=== PATIENT | male | born 1945 | race Caucasian/White ===

== ENCOUNTER 2017-11-28 04:34 | Emergency (ER) | payer MEDICARE, OTHER, SELFPAY ==
[2017-11-28 04:35] VITALS: BP 189/82; PULSE 61; RESP 24; TEMP 36.2; O2SAT 100; BMI 27.8
[2017-11-28 04:37] VITALS: BP 210/77; PULSE 57; RESP 24; O2SAT 100
--- NOTE | 2017-11-28 04:47 | ED.VISSUMM ---
- ER Visit Summary Date of Service: 11/28/17 Chief Complaint: Right upper quadrant abdominal pain History of Present Illness: The patient is a 72 M sudden right upper quadrant abdominal pain awakening him at 4 AM this morning. Sharp sensations 8 out of 10. No nausea or vomiting. No diarrhea. No fever, chills, sweats. Patient states a week ago had a CT scan of the abdomen and pelvis as an outpatient for left lower flank pain to rule out diverticulitis. He states he had a lot of gallstones that was reported to him. States he ate buttered popcorn at 10 PM last evening. No previous similar symptoms. History of appendectomy in 1972. Past medical history: Coronary disease, GERD, diabetes, hypertension, hypercholesterolemia Physical Examination: General: Alert and oriented ?3, moderate distress HEENT: Normocephalic, atraumatic. Moist mucosa membranes Neck: supple, nontender. Cardiovascular: Regular rate and rhythm, no murmurs Respiratory: Normal breath sounds, symmetric, no distress Abdomen: Soft, normal bowel sounds, nondistended. Positive Iwlson's sign. Extremities: Nontender, no edema, pulses intact ?4 Neuro: no focal neurological deficits. Test Results: WBC 5.3. Hemoglobin 13.6. Creatinine 0.99. Lipase 222. Alk phos 136. Right upper quadrant ultrasound pending. Emergency Department Course and Treatment: Patient positive Wilson sign on examination. Labs workup, normal labs except for slight elevated ALP of 136. Treated morphine Zofran and fluids. Additional fentanyl was given. CT scan report was obtained noted reported stone filled gallbladder. Right upper quadrant ultrasound ordered and is pending at this time. On reevaluation at 0755, symptoms much more improved. 0826: Reported ultrasound notes gallstones with sludge. No free fluid. Normal gallbladder wall. Normal common bile duct. Patient will follow-up with surgeon as outpatient. Return if any worsening symptoms. Treatment Plan: [] Disposition: Discharge Impression: 1. Cholelithiasis 2. Right upper quadrant abdominal pain This note was generated with [employer] dictation software. It may contain incorrect words, spelling, and punctuation that were not noted in review of the chart prior to signing ED Disposition - Plan for ED Patient: Disposition: Home or Assisted Living Chief Complaint: Abd Pain Diagnosis: Cholelithiasis, Right upper quadrant abdominal pain Instructions: Discharge Instructions for Gallstones Prescriptions: Oxycodone HCl/Acetaminophen [Percocet 5/325] 1 tablet PO Q6H PRN PRN 3 Days #12 tablet PRN Reason: Pain Ondansetron [Zofran Odt] 8 mg PO Q8H PRN PRN #10 tab PRN Reason: Nausea Referrals: Dandre Arcos MD [Primary Care Provider] - Jim Brown MD [STAFF PHYSICIAN] - 3-5 Days
[2017-11-28] MEDS: Morphine 4 MG/ML Syringe IV (04:53)
[2017-11-28] MEDS: 0.9% Normal Saline 1,000 ML 125 ML IV (04:53)
[2017-11-28] MEDS: Ondansetron 4 MG/2 ML Vial IV (04:53)
[2017-11-28 05:15] LABS: Absolute Lymphocyte Count 1.48 X10^3/ul (0.83-4.51); Basophil# 0.04 X10^3/uL; Basophil% 0.8 % (0-1); Eosinophil# 0.32 X10^3/uL; Hematocrit 39.7 % (40-54); Hemoglobin 13.6 g/dl (13.0-16.5); Lymphocyte # 1.48 X10^3/ul (4.0); Lymphocyte % 27.8 % (19-41); Mean Corp Hgb Conc 34.3 g/gl (32-36); Mean Corpuscular Hgb 29.4 pg (27.0-32.0); Mean Corpuscular Volume 85.7 fL (80-94); Mean Platelet Vol. 10.8 fl (6.2-12.0); Monocyte# 0.53 X10^3/uL; Monocyte% 9.9 % (0-10); Neutrophil # 2.95 X10^3/uL (2.7-7.7); Neutrophil % 55.3 % (47-70); Platelet Count 219 K/mm3 (150-450); RBC Distribution Width CV 12.7 % (11.6-14.6); RBC Distribution Width SD 38.7 fl (35.1-43.9); Red Blood Count 4.63 M/mm3 (4.6-6.2); White Blood Count 5.3 K/mm3 (4.4-11.0)
[2017-11-28 05:24] LABS: POSITIVE COUNT NO; POSITIVE DIFFERENTIAL NO; POSITIVE MORPHOLOGY NO
[2017-11-28 05:29] LABS: AST(SGOT) 19 U/L (15-37); Alanine Aminotransfer ALT/SGPT 31 U/L (16-61); Albumin, Serum 4.5 g/dL (3.2-5.0); Alkaline Phosphatase 136 U/L (45-117); Anion Gap 8 (5-15); BUN 20 mg/dL (7-18); BUN/Creat Ratio 20.3 RATIO (10-20); Chloride 106 mmol/L (98-107); Creatinine, Serum 0.99 mg/dL (0.70-1.30); EST Glomerular Filtration Rate 79 mL/min (>60); Est Glom Filt Rate - Afr Amer 96 mL/min (>60); Estimated Creatinine Clearance 77.34 ml/min; Globulin 3.4 g/dL (2.2-4.2); Glucose 158 mg/dL (74-106); Lipase 222 U/L (73-393); Potassium 3.7 mmol/L (3.5-5.1); Protein, Total 7.9 g/dL (6.4-8.2); Sodium Level 140 mmol/L (136-145)
--- NOTE | 2017-11-28 05:35 | US_ITS ---
STUDY: ABDOMINAL ULTRASOUND - RIGHT UPPER QUADRANT REASON FOR VISIT: Male, 72 years old. One-day history of right upper quadrant pain. The patient has a history of cholelithiasis. TECHNIQUE: Ultrasound evaluation of the right upper quadrant was performed with real-time and static allen-scale imaging. TECHNICAL QUALITY: Adequate. COMPARISON: None. FINDINGS: Liver: The liver measures 17.5 cm. There is normal echogenicity of the liver. The bile ducts are within normal limits. There is hepatic color flow. The direction of portal flow is hepatopetal. There is no demonstrated mass lesion. Gallbladder: Normal distended gallbladder. The gallbladder wall measures 2.8 mm. There is a positive sonographic Wilson's sign. There is no pericholecystic fluid. There are multiple echogenic structures within the gallbladder, consistent with multiple gallstones. A small amount of sludge is seen within the gallbladder lumen. Common Bile Duct (C.B.D.): The common bile duct measures 3.4 mm. Pancreas: There is nonvisualization of the pancreas due to overlying bowel gas. Right Kidney: Normal size of the right kidney. The right kidney measures 12.2 cm x 6.5 cm x 6.5 cm. Normal renal cortex. The right cortex measures 2.7 cm. 2 renal cysts are seen. The larger measures 1.7 cm x 1.5 cm x 1.1 cm. There is no right hydronephrosis. US/Gallbladder IMPRESSION: Multiple gallstones and sludge within the gallbladder lumen. Right renal cysts. Electronically Signed: Hermann De La Rosa MD at 8:26 EDT Tel [phone], Service support ,
[2017-11-28 05:38] LABS: International Normalized Ratio 1.1; Prothrombin Time (Protime)PT. 13.8 SECONDS (11.7-14.9)
[2017-11-28] MEDS: fentaNYL 100 MCG/2 ML Ampul 50 MCG IV (05:41)
[2017-11-28 06:02] LABS: Partial Thromboplast Time 32.9 Seconds (24.1-36.2)
[2017-11-28 06:03] VITALS: BP 140/47; PULSE 51; RESP 14; O2SAT 97
[2017-11-28 08:00] VITALS: BP 119/43; PULSE 51; RESP 16; O2SAT 96
== END 2017-11-28 08:47 | disposition home or self-care (01) ==
PROVIDERS: Emergency Provider Emergency Medicine; Family Provider Internal Medicine; PCP Internal Medicine
DX: K80.20 Calculus of gallbladder without cholecystitis without obstruction (principal); R10.11 Right upper quadrant pain; I25.10 Atherosclerotic heart disease of native coronary artery without angina pectoris; K21.9 Gastro-esophageal reflux disease without esophagitis; E11.9 Type 2 diabetes mellitus without complications; I10 Essential (primary) hypertension; E78.00 Pure hypercholesterolemia, unspecified
CPT/HCPCS: 76705; 80048; 80076; 83690; 85025; 85610; 85730; 86850; 86900; 96361; 96374; 96375; 99282; J7030; A4216; J2405

== ENCOUNTER 2017-11-29 19:45 | Observation (INO) | payer MEDICARE, OTHER, SELFPAY ==
[2017-11-29] VITALS (9 sets, daily range): BP systolic 129–146; BP diastolic 47–69; PULSE 46–72; RESP 14–18; TEMP 36.3–37.2; O2SAT 93–99; BMI 27.4
[2017-11-29 15:26] LABS: ALB/GLOB Ratio 1.2 RATIO (0.9-2.4); AST(SGOT) 17 U/L (15-37); Alanine Aminotransfer ALT/SGPT 27 U/L (16-61); Albumin, Serum 4.2 g/dL (3.2-5.0); Alkaline Phosphatase 113 U/L (45-117); Anion Gap 5 (5-15); BUN 18 mg/dL (7-18); BUN/Creat Ratio 16.5 RATIO (10-20); Calcium,Total 8.8 mg/dL (8.5-10.1); Chloride 102 mmol/L (98-107); Creatinine, Serum 1.09 mg/dL (0.70-1.30); EST Glomerular Filtration Rate 71 mL/min (>60); Est Glom Filt Rate - Afr Amer 86 mL/min (>60); Globulin 3.5 g/dL (2.2-4.2); Glucose 203 mg/dL (74-106); Potassium 3.8 mmol/L (3.5-5.1); Protein, Total 7.7 g/dL (6.4-8.2); Sodium Level 138 mmol/L (136-145)
--- NOTE | 2017-11-29 15:43 | EKG12_ITS ---
Test Reason : PREOP Blood Pressure : / mmHG Vent. Rate : 048 BPM Atrial Rate : 048 BPM P-R Int : 198 ms QRS Dur : 182 ms QT Int : 490 ms P-R-T Axes : 017 -46 -26 degrees QTc Int : 437 ms Marked sinus bradycardia Right bundle branch block Left anterior fascicular block Bifascicular block Septal infarct , age undetermined , cannot be excluded Abnormal ECG Confirmed by CABRERA RICKETTS, CHAZ ([id number]), continuity editor ELENA PIERRE ([id number]) on 12/07/2017 1:05:02 PM Referred By: Jim Brown Confirmed By:CHAZ REES MD
[2017-11-29 16:01] LABS: Bedside Glucose 175 mg/dL (70-110)
[2017-11-29 16:30] LABS: Hemoglobin A1c 6.6 % (4.2-6.3)
[2017-11-29] MEDS: Cefazolin 2 GM in 0.9% Normal Saline 100 ML IV (18:09)
--- NOTE | 2017-11-29 18:30 | RAD_ITS ---
STUDY: INTRAOPERATIVE CHOLANGIOGRAM. REASON FOR EXAM: Male, 72 years old. Laparoscopic cholecystectomy. FLUOROSCOPY TIME (if supplied): (31.1 seconds.) minutes/seconds TECHNIQUE: Intraoperative cholangiogram was performed by the surgeon. Imaging was submitted. COMPARISON: None. FINDINGS: The visualized intrahepatic ducts are unremarkable. The common bile duct is not dilated. There is free flow of contrast into the duodenum. RAD/Cholangiogram/ O R,Initial IMPRESSION: Unremarkable intraoperative cholangiogram. Electronically Signed: Hermann De La Rosa MD at 15:31 EDT Tel [phone], Service support ,
[2017-11-29] MEDS: Bupivacaine Mpf 0.5% 30 ML VIAL OPERA.SITE (19:33)
--- NOTE | 2017-11-29 19:38 | OP.PCM_ITS ---
Problem List (1) Acute cholecystitis Status: Acute Report of Operation Date of Procedure: 11/29/17 Pre-Operative Diagnosis: Acute cholecystitis cholelithiasis Post-Operative Diagnosis: Same Surgery/Procedure Performed:: Laparoscopic cholecystectomy with cholangiography Description of Surgical Findings:: Timeout and informed consent was obtained. 72-year-old gentleman was taken to the operating room. By history it became apparent that he has been ill for over 1 week. His abdomen sterilely prepped and draped. Ancef 2 g given intravenously preoperatively. 0.5% Marcaine was used as local anesthetic. Throughout the procedure total 30 cc was given. Skin sites were pre- anesthetized for it. A vertical incision was made at the superior aspect of the umbilicus. Sharp dissection carried down through the substance tissue. The fascia was incised the posterior sheath identified it was incised and the 12 mm trocar was inserted. The abdomen was insufflated with CO2 to a pressure of 10 mmHg pressure. The abdomen is inspected there were dense adhesions of omentum to the gallbladder which is markedly indurated and inflamed. Five- minute trochars in place of the epigastric mid abdomen right upper quadrant. Tedious blunt and sharp and electrocautery dissection was used to free the omentum. The gallbladder was so tense that had to be needle aspirated free. Then tedious dissection performed down toward the infundibular area and careful aqua dissection and blunt dissection was performed. Hem-o-irene clips were used for hemostasis. The cystic artery was identified it was secured proximally with a Hem-o-irene clip circumferential dissection was performed. Because of the amount of induration all of her cephalad I elected to do a dome down approach. The gallbladder peritoneum was incised with electrocautery and carefully and tediously recently it was taken as a dome down approach. Having achieved this I can then see the infundibular area of the gallbladder in a much clearer fashion was able to bluntly dissect free with the [place] retractor until all I had was infundibular cystic duct area. I placed a Hem-o-irene clip on that an incision and there were multiple stones that was able to milk back from the cystic duct infundibular stump. I aspirated those free. Great care was taken to leave no stones behind. I then inserted a cholangiogram catheter through a 14-gauge Angiocath and fluoroscopically controlled cholangiograms were obtained. This demonstrated that the ductal anatomy was nicely intact. The cystic duct was still rather long. There was good flow into the small bowel. There was no evidence of any intraluminal common bile duct filling defects. The cholangiogram catheter was removed and 2 large Hem-o-irene clips were placed on the cystic duct stump area. Gallbladder was transected immediately placed in retrieval bag. The right upper quadrant was then copiously irrigated and aspirated free of excess fluid. I placed a 15 round GUDELIA drain to the subhepatic space and I shorten that drain to length. It was secured skin with interrupted 3-0 nylon. The gallbladder was then exited the umbilicus no further fascial enlargement was required. Trochars were removed under visualization the abdomen was allowed to deflate CO2 the fascia at the umbilicus approximated with 2 interrupted figure 8 sutures of 0 Vicryl. Skin edges approximated up to 4 Monocryl subdermal stitches. Steri-Strips Telfa and OpSite dressings applied. Sponge instrument and needle counts were reported to the surgeon to be correct. The aspirate from the gallbladder was sent for Gram stain culture and sensitivity. He was taken to the recovery room in satisfactory condition without apparent complication. Specimens gallbladder and gallbladder fluid for culture. Drains #15 GUDELIA round right upper quadrant. Blood loss minimal. Jim Brown M.D., F.A.C.S. Type of Anesthesia:: General Anesthesiologist: Ray Coughlin
--- NOTE | 2017-11-29 19:51 | DCINST_ITS ---
Discharge Diet: Light diet - advance as tolerated - if you have questions about your diet instructions, please talk to you doctor. Discharge Activity: May Not Drive - for 1 week or while taking narcotic pain medicine. May shower in (days): 1 Lifting Restrictions: 10 pounds Call your doctor if your incision/area has: Continuous Slow Oozing, Sudden Increased Bleeding, Increased Pain/ Swelling, Increased Redness, Foul Smelling Discharge Call your doctor if you observe: Fever of 101 or Higher Suture Line Care: Avoid Pulling/Pushing, Avoid Pinching/Bending Additional Dressing/Incision Instructions:: Change or remove dressing in 4 days. Leave steri-strips in place for 1 week. Allergies/Adverse Reactions: Allergies No Known Allergies Allergy (Verified 11/29/17 13:46) Medications to take at Discharge Amlodipine [Norvasc] 10 mg PO DAILY 10/02/13 Metformin HCl [Glucophage] 1,000 mg PO BID 10/02/13 Metoprolol Tartrate [Lopressor (beta vern)] 100 mg PO BID 10/02/13 Paroxetine HCl [Paxil] 20 mg PO DAILY 10/02/13 Ramipril [Altace] 10 mg PO DAILY 10/02/13 Atorvastatin Calcium [Lipitor] 80 mg PO DINNER 11/21/13 Alendronate Sodium [Fosamax] 70 mg PO Q7D@0700 11/28/17 Calcium Carbonate [Calcium] 630 mg PO DAILY 11/28/17 Cholecalciferol (Vitamin D3) [Vitamin D3] 500 unit PO DAILY 11/28/17 Doxazosin Mesylate [Cardura] 2 mg PO DAILY 11/28/17 Freedom-3 Fatty Acids [Freedom-3] 550 mg PO BID 11/28/17 Ondansetron [Zofran Odt] 8 mg PO Q8H PRN PRN #10 tab 11/28/17 Oxycodone HCl/Acetaminophen [Percocet 5-325] 1 tab PO Q6H PRN PRN 3 Days #12 tab 11/28/17 Hydrocodone Bitart/Apap 5-325 [[place] 5/325] 1 tab PO Q6H PRN PRN 3 Days #10 tab 11/29/17 aspirin 81 mg tablet,delayed release 81 mg PO QDAY 11/29/17 Ciprofloxacin [Cipro] 250 mg PO BID #10 tab 11/30/17 The following prescriptions were given: Ciprofloxacin [Cipro] 250 mg PO BID #10 tab Primary Care Physician: Dandre Arcos MD [Primary Care Provider] - Please Follow Up With: Jim Brown MD - [phone] When: Call to make an appointment to be seen in about 10 days.
[2017-11-29 20:11] LABS: Bedside Glucose 163 mg/dL (70-110)
[2017-11-29] MEDS: Lactated Ringers 1,000 ML 50 ML IV (20:42)
[2017-11-29] MEDS: Cefazolin 1 GM/50 ML BAG IV (22:57)
[2017-11-29] MEDS: Morphine 2 MG/ML Syringe IV (22:57)
[2017-11-29 23:10] LABS: Bedside Glucose 180 mg/dL (70-110)
--- NOTE | 2017-11-29 23:20 | NURSING ---
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
[2017-11-29] MEDS: Metoprolol Tartrate 100 MG Tablet PO (23:34)
--- NOTE | 2017-11-30 | GALL_PTH ---
PATIENT: SUSAN CARLTON LOC: MS3 U#:[id number] AGE/SX: 72/M ROOM: MS310 RE11/29/[address]: Dr. Jim Brown MD : 1945 BED: 1 DIS: 11/30/2017 SPEC #: [id number] RECD: 11/30/17 12:21 STATUS: ANGEL LUIS ECHEVARRIA #: [id number] VESTA: 11/30/17 00:[address]: Jim Brown DEPT: SURGICAL PATHOLOGY RECD BY: Deshawn Grimaldo ENTERED: 11/30/17 12:21 SP TYPE: AKBAR AQUINO DR: Dr. Dandre Acros MD Tissues: Gallbladder, NOS Procedures: Surgery Specimen Level III HEADER OPERATION: Laparoscopic cholecystectomy with IOC PRE-OP DIAGNOSIS: Acute cholecystitis without biliary obstruction TISSUE SUBMITTED: Gallbladder MICROSCOPIC DIAGNOSIS Gallbladder, cholecystectomy: Acute and chronic cholecystitis and cholelithiasis. AM:sherrell 12/01/17 MICROSCOPIC DESCRIPTION Slides are reviewed. GROSS DESCRIPTION Received is one container labeled with the patient's name and designated gallbladder. The specimen consists of a gallbladder measuring 9 x 4 x 3.5 cm. The external surface is smooth and glistening. Focally, it is granular, hemorrhagic and contains cautery artifact. The lumen of the gallbladder contains yellow mucoid bile and multiple black calculi ranging in size from <0.1 to 1 cm in greatest dimension. The mucosa is bile-stained and without any mass lesions. The gallbladder wall averages 0.1 cm in thickness and is free of mass lesions. Seating Upholsterer sections of the gallbladder and the cystic duct are submitted in one cassette. / AM:sherrell 11/30/17 TC:2 CPT: 65629
[2017-11-30 01:00] VITALS: BP 153/75; PULSE 71; RESP 16; TEMP 37.4; O2SAT 94
[2017-11-30] MEDS: Morphine 4 MG/ML Syringe IV (01:07)
[2017-11-30 05:38] VITALS: BP 135/67; PULSE 57; RESP 18; TEMP 37.4; O2SAT 96
[2017-11-30] MEDS: Cefazolin 1 GM/50 ML BAG IV (05:41)
--- NOTE | 2017-11-30 05:41 | PCM.PN.SRG ---
Patient Problems: Active and Suspected Problems (Last Reviewed 11/29/17 @ 13:43 by Enma Lorenz) Acute cholecystitis (Acute) Subjective: Pt feeling better Hasn't voided since surgery - Physical Exam Abdomen: Soft, Hypoactive Bowel Sounds - GUDELIA drain with incomplete dressing and open dressing staining and leakage externally, Distended Vital Signs Temp Pulse Resp BP Pulse Ox 99.4 F H 57 L 18 135/67 H 96 11/30/17 05:38 11/30/17 05:38 11/30/17 05:38 11/30/17 05:38 11/30/17 05:38 Oxygen Flow Rate (L/min) 2 Oxygen Delivery Method Room Air Weight: 211 lb Body Mass Index (BMI) 27.4 Finger Stick Blood Glucose 163 Intake and Output for Last 24 Hours 11/28/17 11/29/17 11/30/17 23:59 23:59 23:59 Intake Total 2285 / 2285 301 / 301 Output Total 30 / 30 20 / 20 Balance 2255 / 2255 281 / 281 Laboratory Tests Past 24 Hrs 11/28/17 11/29/17 04:57 14:42 Sodium 138 Potassium 3.8 Chloride 102 Carbon Dioxide 31.0 Anion Gap 5 BUN 18 Creatinine 1.09 Est GFR (MDRD) Af Amer 86 Est GFR (MDRD) Non-Af 71 BUN/Creatinine Ratio 16.5 Glucose 203 H Hemoglobin A1c 6.6 H Calcium 8.8 Total Bilirubin 1.00 AST 17 ALT 27 Alkaline Phosphatase 113 Total Protein 7.7 Albumin 4.2 Globulin 3.5 Albumin/Globulin Ratio 1.2 POC Glucose 11/29/17 11/29/17 11/29/17 23:04 20:07 15:45 POC Glucose 180 H 163 H 175 H Medical Necessity - Tobacco Use Smoking Status: Former smoker Tobacco Use: Pipe Assessment/Plan Active and Suspected Problems (Last Reviewed 11/29/17 @ 13:43 by Enma Lorenz) Acute cholecystitis (Acute) Pt with h/o urinary retention and hasnt voided since OR. Needs U/S bladder and my need catheter to drainage GUDELIA dressing open to air and soiled placing at risk of infection and removal Will remove drain to avoid complication Need to check GB gm stain Hopeful discharge later today
--- NOTE | 2017-11-30 06:17 | NURSING ---
Patient up ambulating in hallways at this time
[2017-11-30 09:27] VITALS: PULSE 74
[2017-11-30] MEDS: Metoprolol Tartrate 100 MG Tablet PO (09:27)
[2017-11-30] MEDS: Aspirin E.C. 81 MG Tablet PO (09:27)
[2017-11-30] MEDS: amLODIPine 10 MG Tablet PO (09:27)
[2017-11-30] MEDS: Doxazosin 1 MG Tablet 2 MG PO (09:28)
[2017-11-30] MEDS: Ramipril 10 MG Capsule PO (09:28)
[2017-11-30] MEDS: oxyCODONE 5 MG Tablet PO (09:31)
[2017-11-30 09:46] VITALS: BP 135/72; PULSE 72; RESP 18; TEMP 37; O2SAT 98
[2017-11-30 12:46] LABS: Bedside Glucose 162 mg/dL (70-110)
[2017-11-30 15:59] VITALS: BP 122/47; PULSE 59; RESP 18; TEMP 37.2; O2SAT 97
[2017-11-30 16:37] VITALS: BP 128/74; PULSE 58; RESP 18; TEMP 36.9; O2SAT 97
== END 2017-11-30 16:40 | disposition home or self-care (01) ==
LOC: SDC 11-30 10:00
PROVIDERS: Anesthesiology; Admitting Provider Surgery; Family Provider Internal Medicine; PCP Internal Medicine; Visit Provider Surgery
PROC: (CPT 47610; principal; 2017-11-29 19:20)
DX: K80.12 Calculus of gallbladder with acute and chronic cholecystitis without obstruction (principal); E11.9 Type 2 diabetes mellitus without complications; Z87.891 Personal history of nicotine dependence; R33.9 Retention of urine, unspecified; Z79.899 Other long term (current) drug therapy; Z79.84 Long term (current) use of oral hypoglycemic drugs; I44.4 Left anterior fascicular block; I10 Essential (primary) hypertension; E78.00 Pure hypercholesterolemia, unspecified
CPT/HCPCS: 00790; 47563; 36415; 74300; 76000; 80053; 82962; 83036; 87070; 87075; 87077; 87186; 87205; 88304; 93005; 96365; 96366; 96375; 96376; 97802; 99218; J7120; G0378; G0379; J2405

== ENCOUNTER 2018-10-13 16:58 | Emergency (ER) | payer MEDICARE, OTHER, SELFPAY ==
[2018-10-13 16:58] VITALS: BP 216/88; PULSE 52; RESP 16; TEMP 36.3; O2SAT 97; BMI 28.2
--- NOTE | 2018-10-13 17:14 | EKG12_ITS ---
Test Reason : HTN Blood Pressure : / mmHG Vent. Rate : 052 BPM Atrial Rate : 052 BPM P-R Int : 188 ms QRS Dur : 168 ms QT Int : 494 ms P-R-T Axes : 027 -57 -23 degrees QTc Int : 459 ms Sinus bradycardia Right bundle branch block Left anterior fascicular block Bifascicular block Confirmed by GAIL RICKETTS, ALYSSA ([id number]), medical transcription editor PRIYANKA HORNE ([id number]) on 10/19/2018 1:58:15 PM Referred By: ARIS Confirmed By:ALYSSA REYNOLDS MD
--- NOTE | 2018-10-13 17:21 | ED.DCSUM_ITS ---
History of Present Illness Chief Complaint: Hypertension Detail of Chief Complaint: Mild head discomfort/lightheadedness Informant: Patient Onset: Days Context: Gradual Onset - Read narrative, - Timing: Continuous Quality: Elevated blood pressure that started several weeks ago Location: Not applicable Current Severity: Moderate Maximum Severity: Moderate Worsened by: Nothing Relieved by: Nothing Associated Symptoms: Mild head discomfort last evening and lightheadedness. Narrative: Patient is an elderly male with multiple medical problems. He states several months ago he decreased his metoprolol level from 100 mg to 50 mg. The Toprol was decreased because of dizziness/orthostatic symptoms. Several weeks ago he had blood pressure readings of 160 systolic. The last several days he has had readings 190s to greater than 200. He reported mild head discomfort/lightheadedness last evening. He denies visual, ocular auditory symptoms. No trouble speech or swallowing. Denies paresthesia, anesthesia motors. Trouble with balance. He denies chest pain, back pain or low back discomfort. Prior similar symptoms: No Recent Illness/Hospitalization: No - Past Medical History (1) CAD (coronary artery disease) Status: Chronic (2) DM (diabetes mellitus), type 2 Status: Chronic (3) Peripheral neuropathy Status: Chronic (4) S/P CABG x 2 Status: Chronic Comment: in 2002 (5) Trimalleolar fracture of right ankle Status: Chronic Past Medical History - Allergies and Home Meds Allergies/Adverse Reactions: Allergies No Known Allergies Allergy (Verified 10/13/18 17:02) Primary Care Physician: Dandre Arcos MD [Primary Care Provider] - Prior records reviewed: Yes Surgical History: appendectomy, tonsillectomy, - - Open reduction internal fixation left trimalleolar fracture complicated by diabetic foot ulcer. Lives: Spouse/ Significant Other Smoking Status: Former smoker Alcohol: None - Family History Maternal Family History: Family History (Last Reviewed 12/11/17 @ 12:51 by Enma Lorenz) Father Hypertension Sister Hypertension Family History: Reports: Cancer Paternal Family History: Family History (Last Reviewed 12/11/17 @ 12:51 by Enma Lorenz) Father Hypertension Sister Hypertension Family History: Reports: High Cholesterol, Heart Disease, Hypertension, - Review of Systems General: Denies: Chills, Fever, Malaise, Sweats Eyes: Denies: Visual changes - bilaterally, Blurred Vision - bilaterally, Diplopia ENT: Denies: Rhinorrhea, Sore throat Cardiovascular: Denies: Chest pain, Palpitations Respiratory: Denies: Dyspnea, Cough, Dyspnea on exertion Gastrointestinal: Denies: Abdominal pain, Nausea, Vomiting, Diarrhea, Melena, Hematochezia Genitourinary: Denies: Dysuria, Hematuria, Frequency Musculoskeletal: Denies: Back pain, Extremity Pain Skin: Denies: Rash, Wounds Neurological: Denies: Headache - Head discomfort which he describes as lightheadedness, Weakness, Numbness Endocrine: Denies: Polyuria, Polydipsia Allergy: Denies: Uticaria Physical Exam Vital Signs/Narrative: Vital Signs Temp Pulse Resp BP Pulse Ox 10/13/18 16:58 97.4 F L 52 L 16 216/88 H 97 General: Well nourished, Well developed, No Acute Distress Head: Normocephalic, Atraumatic Eyes: Perrl, EOMI, - - Cup-to-disc ratio is normal. There is no papilledema. 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 Negative for: Pale conjunctiva, Scleral icterus ENT: Moist mucous membranes, No rhinorrhea, TM's clear. Negative for: Sinus tenderness Neck: Supple, Nontender, No lymphadenopathy, No JVD Cardiovascular: Regular rate, Regular rhythm, No murmurs, Normal S1, Normal S2 Respiratory: No distress, CTA bilaterally, Chest nontender Abdomen: Soft, Nontender, Nondistended, Normal bowel sounds Back: Nontender, Normal Inspection Extremities: Nontender, No edema Skin: Normal color, No rash Neurological: Alert, Oriented x3, Cranial nerves II-XII grossly intact, Normal Strength, Normal Sensation, Normal DTR, Normal Gait, - Psychological: Normal affect, Normal Mood Diagnostic/Tx/Re-eval Laboratory Results 10/13/18 10/13/18 17:40 18:00 Sodium 140 Potassium 3.8 Chloride 109 H Carbon Dioxide 26.0 Anion Gap 5 BUN 19 H Creatinine 0.86 Estim Creat Clear Calc 87.75 Est GFR (MDRD) Af Amer 112 Est GFR (MDRD) Non-Af 93 BUN/Creatinine Ratio 22.1 H Glucose 145 H Calcium 8.7 Urine Color Yellow Urine Clarity Clear Urine pH 5.0 Ur Specific [place] 1.030 Urine Protein 30 H Urine Glucose (UA) 100 H Urine Ketones Negative Urine Occult Blood Negative Urine Nitrite Negative Urine Bilirubin Negative Urine Urobilinogen Normal Ur Leukocyte Esterase Negative Urine RBC 0-5 SEEN Urine WBC 0-5 SEEN Ur Squamous Epith Cells 0 SEEN Urine Bacteria 0 SEEN Hyaline Casts 0-5 SEEN Urine Mucus 0 SEEN - Medical Decision Making Since patient's only complaint is head discomfort/lightheadedness will treat with oral clonidine. Will obtain EKG, basic mental panel and UA to assess for endorgan injury since he has had multiple blood pressure readings greater than 200 over the past several days. He attributes to the high blood pressure to what he believes is a muscle pull right side of his chest. There is no bruising. There is no history of direct trauma. Patient was reassessed at 1910. Blood pressure is 166/67. He was informed of his lab results. Since there is no evidence of endorgan injury he will be discharged to home. He was given a prescription for clonidine 0.1 mg twice daily. He was instructed to take this in addition to the metoprolol and follow- up with Dr. Arcos this coming week ED Disposition - Plan for ED Patient: Disposition: Home or Assisted Living Diagnosis: Accelerated hypertension Instructions: ED Hypertension Conf Out Of Control Prescriptions: Clonidine HCl [Clonidine HCl ER] 0.1 mg PO BID #60 tab.er.12h Referrals: Dandre Arcos MD [Primary Care Provider] - 5-7 Days
[2018-10-13] MEDS: cloNIDine HCl 0.1 MG Tablet 0.2 MG PO (17:31)
[2018-10-13 17:41] VITALS: BP 202/71; PULSE 54; RESP 13; O2SAT 97
[2018-10-13 18:05] LABS: Bacteria 0 SEEN /hpf (None Seen); Mucous, Urine 0 SEEN /hpf (<or=2+)
[2018-10-13 18:05] LABS: Anion Gap 5 (5-15); BUN 19 mg/dL (7-18); BUN/Creat Ratio 22.1 RATIO (10-20); Calcium,Total 8.7 mg/dL (8.5-10.1); Chloride 109 mmol/L (98-107); Creatinine, Serum 0.86 mg/dL (0.70-1.30); EST Glomerular Filtration Rate 93 mL/min (>60); Est Glom Filt Rate - Afr Amer 112 mL/min (>60); Estimated Creatinine Clearance 87.75 ml/min; Glucose 145 mg/dL (74-106); Potassium 3.8 mmol/L (3.5-5.1); Sodium Level 140 mmol/L (136-145)
[2018-10-13 18:13] LABS: Color, Urine Yellow (Yellow); Glucose, Dipstick 100 mg/dl (Normal); Ketone-Dipstick Negative (Negative); Leukocyte Esterase-Dipstick Negative /ul (Negative); Nitrite-Dipstick Negative (Negative); Occult Blood-Urine Negative /ul (Negative); Protein-Dipstick 30 mg/dl (Negative); Urine Bilirubin Dipstick Negative (Negative); Urine Clarity Clear (Clear); Urine Urobilinogen Normal (Normal)
[2018-10-13 18:20] LABS: Hyaline Cast 0-5 SEEN /lpf (0-5); Red Blood Cells-Urine 0-5 SEEN /hpf (0-5); Squamous Epithelial Cells - UA 0 SEEN /hpf (0-5); White Blood Cells 0-5 SEEN /hpf (0-5)
[2018-10-13 18:41] VITALS: BP 165/66; PULSE 52; RESP 12; O2SAT 96
[2018-10-13 19:23] VITALS: BP 163/64; PULSE 49; RESP 14; O2SAT 93
== END 2018-10-13 19:23 | disposition home or self-care (01) ==
PROVIDERS: Emergency Provider Emergency Medicine; Family Provider Internal Medicine; PCP Internal Medicine
DX: I10 Essential (primary) hypertension (principal); E11.42 Type 2 diabetes mellitus with diabetic polyneuropathy; I25.10 Atherosclerotic heart disease of native coronary artery without angina pectoris; Z95.1 Presence of aortocoronary bypass graft; Z87.891 Personal history of nicotine dependence
CPT/HCPCS: 80048; 81001; 93005; 99285; A4216

== ENCOUNTER 2021-03-23 18:27 | Emergency (ER) | payer MEDICARE, OTHER, SELFPAY ==
[2021-03-23 18:28] VITALS: BP 122/71; PULSE 59; RESP 18; TEMP 36.2; O2SAT 97; BMI 26.4
--- NOTE | 2021-03-23 18:45 | EKG12_ITS ---
Test Reason : CP Blood Pressure : / mmHG Vent. Rate : 058 BPM Atrial Rate : 058 BPM P-R Int : 196 ms QRS Dur : 190 ms QT Int : 488 ms P-R-T Axes : 024 -56 -30 degrees QTc Int : 479 ms Sinus bradycardia Left axis deviation Right bundle branch block Septal infarct , age undetermined Abnormal ECG Confirmed by CABRERA RICKETTS, CHAZ ([id number]), city editor PRIYANKA HORNE ([id number]) on 03/25/2021 9:07:34 AM Referred By: MICHELLE Confirmed By:CHAZ REES MD
[2021-03-23 18:53] LABS: Absolute Lymphocyte Count 0.91 X10^3/uL (0.83-4.51); Absolute Neutrophil Count 2.5 X10^3/uL (2.0-7.7); Basophil# 0.04 X10^3/uL; Eosinophil# 0.18 X10^3/uL; Eosinophils% 4.4 % (0-5); Hematocrit 40.3 % (40-54); Hemoglobin 13.4 g/dL (13.0-16.5); Lymphocyte # 0.91 X10^3/ul (0.83-4.51); Lymphocyte % 22.2 % (19-41); Mean Corp Hgb Conc 33.3 g/dL (32-36); Mean Corpuscular Hgb 29.1 pg (27.0-32.0); Mean Corpuscular Volume 87.4 fL (80-94); Mean Platelet Vol. 10.6 fl (6.2-12.0); Monocyte# 0.48 X10^3/uL; Monocyte% 11.7 % (0-10); NRBC Flagged by Analyzer 0 % (0-5); Neutrophil # 2.46 X10^3/uL (2.7-7.7); Neutrophil % 60.2 % (47-70); Platelet Count 198 K/mm3 (150-450); RBC Distribution Width CV 12.6 % (11.6-14.6); RBC Distribution Width SD 40.3 fl (35.1-43.9); Red Blood Count 4.61 M/mm3 (4.6-6.2); White Blood Count 4.1 K/mm3 (4.4-11.0)
--- NOTE | 2021-03-23 19:15 | RAD_ITS ---
STUDY: X-RAY CHEST REASON FOR EXAM: Male, 75 years old. Chest pain/pressure TECHNIQUE: Single AP portable view of the chest. COMPARISON: 04/04/2014 FINDINGS: There are interstitial changes of the lungs. There is no demonstrated pleural abnormality. Sternal cerclage wires and vascular clips are present from a prior sternotomy and coronary artery bypass graft procedure (CABG). Normal mediastinum and danelle. Normal visualized pulmonary arteries. Normal visualized aortic arch and descending thoracic aorta. Normal visualized thoracic spine. Normal visualized ribs, clavicles, and shoulders. There is no demonstrated abnormality of the visualized soft tissue structures of the upper abdomen. RAD/Chest 1 View (Portable) IMPRESSION: Chronic interstitial changes, no superimposed acute pulmonary process Electronically Signed: Hill Monroe MD at 20:14 EDT , Service support ,
[2021-03-23 19:24] LABS: Anion Gap 7 (5-15); BUN 30 mg/dL (7-18); BUN/Creat Ratio 24.4 RATIO (10-20); Chloride 104 mmol/L (98-107); Creatinine, Serum 1.23 mg/dL (0.70-1.30); EST Glomerular Filtration Rate 61 mL/min (>60); Est Glom Filt Rate - Afr Amer 74 mL/min (>60); Estimated Creatinine Clearance 59.55 ml/min; Glucose 175 mg/dL (74-106); Potassium 3.4 mmol/L (3.5-5.1); Sodium Level 136 mmol/L (136-145); Troponin-I HS 1242 pg/mL (3.0-78.0)
[2021-03-23 19:30] VITALS: BP 153/72; PULSE 56; RESP 16; O2SAT 98
--- NOTE | 2021-03-23 19:38 | EDS_ITS ---
HPI History of Present Illness Chief Complaint: Chest Pain Narrative Narrative: Patient presenting with chest pain for the last 3 days. Describes this chest pressure retrosternally rating up to the left side of his neck and to his left shoulder. He felt this might be dyspepsia and has been treating it as such. Patient does have significant cardiac history and has CAD, two-vessel CABG, diabetes, hypertension, hyperlipidemia. Patient's CABG was done in 2002. He had negative stress test in April of last year. He follow-up with his educational aide in October of this year and was told everything looked good. [facility] Medical History ARF (acute renal failure) CAD (coronary artery disease) Dehydration Diabetic ankle ulcer DM (diabetes mellitus), type 2 Peripheral neuropathy Home Medications amlodipine 10 mg PO DAILY 10/02/13 [History Last Taken 11/29/17 08:00] metoprolol tartrate 100 mg PO BID 10/02/13 [History Last Taken 11/29/17 08:00] paroxetine HCl 20 mg PO DAILY 10/02/13 [History Last Taken 11/29/17 08:00] ramipril 10 mg PO DAILY 10/02/13 [History Last Taken 11/29/17 08:00] atorvastatin 80 mg PO DINNER 11/21/13 [History Last Taken 03/31/14] alendronate 70 mg PO Q7D@0700 11/28/17 [History Last Taken Unknown] calcium carbonate 630 mg PO DAILY 11/28/17 [History Last Taken Unknown] cholecalciferol (vitamin D3) 500 unit PO DAILY 11/28/17 [History Last Taken Unknown] doxazosin 2 mg PO DAILY 11/28/17 [History Last Taken Unknown] omega-3 fatty acids 1,000 mg PO BID 11/28/17 [History Last Taken Unknown] aspirin 81 mg tablet,delayed release 81 mg PO QDAY 11/29/17 [History Last Taken Unknown] clonidine HCl 0.1 mg PO BID #60 tab.er.12h 10/13/18 [Rx Last Taken Unknown] metformin 500 mg PO DAILY 10/13/18 [History Last Taken Unknown] Allergy/AdvReac Type Severity Reaction Status Date / Time No Known Allergies Allergy Verified 03/23/21 18:28 Family History Father Hypertension Sister Hypertension Surgical History S/P CABG x 2 S/P laparoscopic cholecystectomy (~11/2017) Trimalleolar fracture of right ankle Social History Smoking Status: Never smoker ROS ROS ED Constitutional Constitutional ED: Denies chills or fever(s) Eyes Eyes: Denies blurry vision or change in vision ENT ENT ED: Denies rhinorrhea or sore throat Cardiovascular Cardiovascular: Reports chest pain; Denies palpitations or racing heartbeat Respiratory/Chest Respiratory/Chest: Reports dyspnea Gastrointestinal Gastrointestinal: Reports other Details: Dyspepsia ; Denies abdominal pain or nausea Genitourinary Genitourinary ED: Denies dysuria or hematuria Musculoskeletal Musculoskeletal: Denies arthralgias or myalgias Integumentary Denies abscess or rash Neurologic Neurologic: Denies headache(s) or paresthesias EXAM Physical Exam Const Vital Signs: 03/23/21 18:28 03/23/21 19:21 03/23/21 19:30 Temperature 97.2 F L Temperature Source Temporal Pulse Rate 59 L 56 L Respiratory Rate 18 16 Respiratory Effort Blood Pressure 122/71 H 153/72 H Blood Pressure Mean 88 99 Pulse Ox 97 98 Oxygen Delivery Method Room Air Room Air Room Air 03/23/21 19:31 03/23/21 20:49 03/23/21 21:15 Temperature Temperature Source Pulse Rate 59 L Respiratory Rate 17 Respiratory Effort Normal Non-Labored Blood Pressure 153/60 H 147/67 H Blood Pressure Mean 91 93 Pulse Ox 98 98 Oxygen Delivery Method Room Air Room Air Positive well developed General Appearance ED: well developed and NAD HEENT normocephalic and atraumatic Eyes PERRL and EOMs intact bilaterally Chest Wall inspection of chest normal and palpation of chest normal Resp normal respiratory effort Effort and Inspection: respiratory distress Cardio regular rate and regular rhythm Extremity normal to inspection General Extremety ED: Negative for edema or tenderness General Extremity: Negative for edema Neuro oriented x3 and CN's II-XII intact bilaterally Sensorium / Orientation: awake and alert Psych mental status grossly normal Skin no rashes or lesions noted Heart Score History: Highly Suspicious ECG: Normal Age: >/= 65 years Risk Factors: >/= 3 Risk Factors or History of CAD Troponin: >/=3 x Normal Limit Score: 8 MDM MDM MDM Narrative Medical decision making narrative: Patient presenting with chest pain and dyspepsia. He had EKG performed which was sinus bradycardia at a ventricular rate of 58 bpm. There is a biventricular block present and compared to his previous EKG 13 October 2018 there is only changes in V2 which shows more depressions otherwise this is similar. Patient CBC and BMP are unremarkable. Coagulation studies are normal. Chest x-ray on my interpretation shows no acute cardiopulmonary process and the radiologist agree. Patient did have a troponin of 1242 and given this he will be treated as NSTEMI. He was given 324 mg of aspirin. He started on a heparin drip. I did talk to Dr. Darby regarding the patient and he stated that he would have to obtain records from outside hospital to determine where he had his two-vessel CABG done in order to successfully perform cardiac catheterization. I did speak with the patient he prefers to go to [facility]. I did job placement counselor him that could possibly await if there are no beds versus waiting in the hospital for records in order to perform catheterization. He still prefers to go to [facility]. I did speak with Dr. Rosen who is on-call for cardiology [facility] and he was amenable to transfer. Patient was tested for COVID-19 and this was negative. Patient currently on heparin drip with stable vital signs and is chest pain- free. He is transferred in stable condition. Impression: 1. NSTEMI Lab Data Labs: Laboratory Results - last 24 hr 03/23/21 03/23/21 03/23/21 18:35 18:35 21:06 WBC 4.1 L RBC 4.61 Hgb 13.4 Hct 40.3 MCV 87.4 MCH 29.1 MCHC 33.3 RDW Std Deviation 40.3 RDW Coeff of [place] 12.6 Plt Count 198 MPV 10.6 Immature Gran % (Auto) 0.500 Neut % (Auto) 60.2 Lymph % (Auto) 22.2 [place] % (Auto) 11.7 H Eos % (Auto) 4.4 Baso % (Auto) 1.0 Absolute Neuts (auto) 2.5 Absolute Lymphs (auto) 0.91 Nucleated RBC % 0 PT 13.9 INR 1.1 APTT 32.9 Sodium 136 Potassium 3.4 L Chloride 104 Carbon Dioxide 25.0 Anion Gap 7 BUN 30 H Creatinine 1.23 Estim Creat Clear Calc 59.55 Est GFR (MDRD) Af Amer 74 Est GFR (MDRD) Non-Af 61 BUN/Creatinine Ratio 24.4 H Glucose 175 H Calcium 9.0 Troponin I High Sens 1242 H* Radiography Diagnostic Testing: Radiology Impression Chest X-Ray 03/23/21 19:15 IMPRESSION: Chronic interstitial changes, no superimposed acute pulmonary process Electronically Signed: Hill Monroe MD at 20:14 EDT , Service support , Discharge Plan Triage Chief Complaint: Chest Pain ED Provider: Azeem Rico Dx/Rx/DC Orders Prescriptions: No Action aspirin [Adult Aspirin Regimen] 81 mg tablet,delayed release (DR/EC) 81 mg PO QDAY RF: 0 amlodipine 5 MG tablet 10 mg PO DAILY RF: 0 paroxetine HCl 20 MG tablet 20 mg PO DAILY RF: 0 metoprolol tartrate 50 MG tablet 100 mg PO BID RF: 0 ramipril 10 MG capsule 10 mg PO DAILY RF: 0 atorvastatin 40 MG tablet 80 mg PO DINNER RF: 0 omega-3 fatty acids 1,000 MG capsule 1,000 mg PO BID RF: 0 alendronate 70 MG tablet 70 mg PO Q7D@0700 RF: 0 calcium carbonate 600 MG tablet 630 mg PO DAILY RF: 0 doxazosin 2 MG tablet 2 mg PO DAILY RF: 0 cholecalciferol (vitamin D3) 1,000 UNIT capsule 500 unit PO DAILY RF: 0 metformin 500 MG [id number] 500 mg PO DAILY RF: 0 clonidine HCl 0.1 MG tablet extended release 12 hr 0.1 mg PO BID Qty: 60 RF: 0 Primary Care Provider: Dadnre Arcos Referrals: Dandre Arcos MD [Primary Care Provider] - Disposition Disposition: Acute Care Hospital Discharge Location: [facility] Discharge Date/Time: 03/23/21 21:55
[2021-03-23] MEDS: Aspirin 81 MG TAB.CHEW 324 MG PO (19:52)
[2021-03-23 20:49] VITALS: BP 153/60; O2SAT 98
[2021-03-23] MEDS: Heparin Injection (Vial) 5,000 UNIT/ML VIAL 6000 UNIT IV (21:11)
[2021-03-23] MEDS: HEPARIN/D5w 25,000 UNITS 25,000 UNITS/250 ML IV.SOLN. 12 UNITS IV (21:12)
[2021-03-23 21:15] VITALS: BP 147/67; PULSE 59; RESP 17; O2SAT 98
[2021-03-23 21:29] LABS: International Normalized Ratio 1.1; Prothrombin Time (Protime)PT. 13.9 SECONDS (11.7-14.9)
[2021-03-23 21:30] LABS: Partial Thromboplast Time 32.9 Seconds (24.1-36.2)
== END 2021-03-23 21:55 | disposition short-term general hospital (02) ==
PROVIDERS: Emergency Provider Student in an Organized Health Care Education/Training Program; PCP Internal Medicine
DX: I21.4 Non-ST elevation (NSTEMI) myocardial infarction (principal); I25.10 Atherosclerotic heart disease of native coronary artery without angina pectoris; E11.40 Type 2 diabetes mellitus with diabetic neuropathy, unspecified; Z95.1 Presence of aortocoronary bypass graft; E78.5 Hyperlipidemia, unspecified; I10 Essential (primary) hypertension; Z79.82 Long term (current) use of aspirin; Z79.84 Long term (current) use of oral hypoglycemic drugs; Z79.899 Other long term (current) drug therapy
CPT/HCPCS: 71045; 80048; 84484; 85025; 85610; 85730; 87426; 93005; 99284; A4216

== ENCOUNTER 2022-03-02 11:46 | Emergency (ER) | payer MEDICARE, OTHER, SELFPAY ==
[2022-03-02 11:46] VITALS: BP 174/86; PULSE 80; RESP 16; TEMP 36.4; O2SAT 96; BMI 25.7
--- NOTE | 2022-03-02 11:56 | RAD_ITS ---
STUDY: X-RAY - LEFT SHOULDER REASON FOR EXAM: Male, 76 years old. Pain following a fall. TECHNIQUE: 5 view(s) of the shoulder. COMPARISON: None. FINDINGS: There is a nondisplaced transverse fracture through the midportion of the left clavicle. There is mild degenerative arthrosis of the glenohumeral articulation. There is degenerative arthrosis of the acromioclavicular joint without inferior osseous spur formation. Normal acromion. Normal humeral head and visualized proximal humerus. The soft tissue structures are unremarkable. Normal visualized pulmonary apex. Prior CABG. RAD/Shoulder min 2 Views IMPRESSION: Nondisplaced transverse fracture through the midportion of the left clavicle. Electronically Signed: Hermann De La Rosa MD at 12:21 EDT ,
--- NOTE | 2022-03-02 11:59 | EDS_ITS ---
HPI HPI - Fall History of Present Illness Chief Complaint: Fall Informant: patient Occured/Mechanism Occurred: Today Usually ambulates: Without assistance Pain/Injury Pain Location: upper extremity Quality of Pain: Dull and Aching Current Severity: Moderate Maximum Severity: Moderate Associated Symptoms Associated Symptoms: Negative for Parasthesias, Weakness, Loss of function, Inability to ambulate, Loss of consciousness or Amnesia Narrative Narrative: 76-year-old male was walking his dog when he bent over to clean up after the dog a child on a bike went by the dog lunged and pulled him down landing awkwardly on his left shoulder. He denies any other injuries. He did not hit his head. He is complaining left shoulder pain. He is right-hand dominant. He has never had a significant injury to his left shoulder or surgery. He is on Brilinta but again did not hit his head. Denies any other complaints. Prior similar symptoms: No Recent Illness/Hospitalization: No PFSH PFS Medical History ARF (acute renal failure) CAD (coronary artery disease) Dehydration Diabetic ankle ulcer DM (diabetes mellitus), type 2 Peripheral neuropathy Home Medications amlodipine 5 mg tablet 10 mg PO DAILY 10/02/13 [History Last Taken 11/29/17 08:00] metoprolol tartrate 50 mg tablet 100 mg PO BID 10/02/13 [History Last Taken 11/29/17 08:00] paroxetine HCl 20 mg tablet 20 mg PO DAILY 10/02/13 [History Last Taken 11/29/17 08:00] ramipril 10 mg capsule 10 mg PO DAILY 10/02/13 [History Last Taken 11/29/17 08:00] atorvastatin 40 mg tablet 80 mg PO DINNER 11/21/13 [History Last Taken 03/31/14] alendronate 70 mg tablet 70 mg PO Q7D@0700 11/28/17 [History Last Taken Unknown] calcium carbonate 600 mg calcium (1,500 mg) tablet 630 mg PO DAILY 11/28/17 [History Last Taken Unknown] cholecalciferol (vitamin D3) 25 mcg (1,000 unit) capsule 500 unit PO DAILY 11/28/17 [History Last Taken Unknown] doxazosin 2 mg tablet 2 mg PO DAILY 11/28/17 [History Last Taken Unknown] omega-3 fatty acids 1,000 mg capsule 1,000 mg PO BID 11/28/17 [History Last Taken Unknown] aspirin 81 mg tablet,delayed release (Adult Aspirin Regimen) 81 mg PO QDAY 11/29/17 [History Last Taken Unknown] clonidine HCl 0.1 mg tablet,extended release,12 hr 0.1 mg PO BID ##60 10/13/18 [Rx Last Taken Unknown] metformin 500 mg 24 hr tablet,extended release 500 mg PO DAILY 10/13/18 [History Last Taken Unknown] Allergy/AdvReac Type Severity Reaction Status Date / Time No Known Allergies Allergy Verified 03/02/22 11:47 Family History Father Hypertension Sister Hypertension Surgical History S/P CABG x 2 S/P laparoscopic cholecystectomy (~11/2017) Trimalleolar fracture of right ankle Social History Smoking Status: Never smoker ROS ROS ED ROS Narrative Denies recent illness. Review of Systems ROS Unobtainable: Denies due to encephalopathy Constitutional Constitutional ED: Denies chills or fever(s) Eyes Eyes: Denies blurry vision ENT ENT ED: Denies ear pain Cardiovascular Cardiovascular: Denies chest pain Respiratory/Chest Respiratory/Chest: Denies cough Gastrointestinal Gastrointestinal: Denies abdominal pain Genitourinary Genitourinary ED: Denies dysuria Musculoskeletal Musculoskeletal: Denies arthralgias Integumentary Denies abscess Psychiatric Psychiatric: Denies anxiety Endocrine Endocrinology: Denies polydipsia Hematologic/Lymphatic Hematologic/Lymphatic: Denies easy bleeding Allergic/Immunologic Allergic/Immunologic ED: Denies mouth swelling EXAM Physical Exam Narrative Exam Narrative: 76-year-old male vital signs stable afebrile. HEENT exam unremarkable atraumatic nontender. C-spine nontender. Trachea midline. Thoracic and lumbar spine back nontender. Lungs clear to auscultation. Heart regular rhythm rate of 80 no murmur. Chest wall ribs and clavicles nontender. Abdomen soft nontender. Pelvic girdle intact. Moving the right upper and both lower extremities. Nontender no deformity. Left shoulder is tender to palpation. No deformity. Decreased range of motion of shoulder due to pain. Flexed at the elbow and held in against the chest wall. Distal humerus, elbow, shoulder forearm, wrist and hand are nontender neurovascular intact with normal mdm sr strength. Nonspecific exam normal. Const Vital Signs: 03/02/22 11:46 03/02/22 11:53 Temperature 97.6 F L Temperature Source Temporal Pulse Rate 80 Respiratory Rate 16 Respiratory Effort Normal Respiratory Pattern Normal Blood Pressure 174/86 H Blood Pressure Mean 115 Pulse Ox 96 Oxygen Delivery Method Room Air Positive well nourished and well developed; Negative for obese, cachectic, contractures or unkempt General Appearance ED: well developed and NAD; Negative for unkempt, cachectic or contractures Nutritional Appearance: Negative for cachectic or obese HEENT Reports normocephalic atraumatic; Negative for trauma, contusion, hematoma or tenderness Neck full ROM, no lymphadenopathy and supple General: Negative for tenderness Chest Wall inspection of chest normal and palpation of chest normal Chest: Negative for other Resp normal respiratory effort, no retractions and clear to auscultation bilaterally Effort and Inspection: Negative for pain with movement Auscultation: Negative for rales, rhonchi or wheezes Cardio regular rate, regular rhythm, S1 normal heart sound, S2 normal heart sound and no murmurs Rate: Negative for bradycardia Rhythm: Negative for abnormal rhythm Bruits: Negative for other GI non-tender, non-distended and no masses Inspection: Negative for abdominal distention Auscultation: normoactive bowel sounds Palpation: soft; Negative for guarding Back/Spine no CVA tenderness General Back: Negative for CVA tenderness Cervical Spine: Negative for cervical spine tenderness Thoracic Spine / Upper Back: Negative for ROM limited Lumbar Spine / Lower Back: Negative for lumbar spinal tenderness or paraspinal muscle tenderness Extremity Extremity Narrative: Left shoulder tender. Held in internal rotation and against his chest wall. No deformity. Neuro oriented x3, CN's II-XII intact bilaterally, moves all extremities and no focal motor deficits [place] Coma Scale: document GCS findings Spontaneous Obeys Commands Oriented 15 Sensorium / Orientation: alert, oriented to person, oriented to place and oriented to time; Negative for orientation impaired, confused, lethargic or stuporous Motor Exam: strength 5/5 throughout Psych mental status grossly normal and thought process normal Appearance: Negative for unkempt Attitude: No agitated Mood & Affect: Negative for depressed or anxious Skin Lesions: no lesions Rashes: no rashes MDM MDM MDM Narrative Medical decision making narrative: 76-year-old male pulled down by his dog complaining of left shoulder pain. X- ray to be obtained. He did not want anything for pain. X-ray showed a distal third clavicle fracture. I went over with the patient. He placed in a sling. Follow-up with [place] [facility] who is seen before in the past. Discussed with the patient he did not want any pain medication or issues Tylenol at home. Radiography Diagnostic Testing: Clinical Impression(s) from Imaging Studies Shoulder X-Ray 03/02/22 11:56 IMPRESSION: Nondisplaced transverse fracture through the midportion of the left clavicle. Electronically Signed: Hermann De La Rosa MD at 12:21 EDT , Left shoulder x-ray, 3 views shows a nondisplaced left distal third clavicle fracture. Interpreted both by myself and the radiologist. Discharge Plan Triage Chief Complaint: Fall ED Provider: Chucky Vargas Dx/Rx/DC Orders Clinical Impression: Fall, Closed fracture of left clavicle, Chronic anticoagulation, History of diabetes mellitus Instructions: ED Fracture, Clavicle Prescriptions: No Action aspirin [Adult Aspirin Regimen] 81 mg tablet,delayed release (DR/EC) 81 mg PO QDAY amlodipine 5 MG tablet 10 mg PO DAILY Label Comments: BLOOD PRESSURE paroxetine HCl 20 MG tablet 20 mg PO DAILY Label Comments: DEPRESSION metoprolol tartrate 50 MG tablet 100 mg PO BID Label Comments: BLOOD PRESSURE/HEART ramipril 10 MG capsule 10 mg PO DAILY Label Comments: BLOOD PRESSURE atorvastatin 40 MG tablet 80 mg PO DINNER Label Comments: CHOLESTEROL omega-3 fatty acids 1,000 MG capsule 1,000 mg PO BID alendronate 70 MG tablet 70 mg PO Q7D@0700 calcium carbonate 600 MG tablet 630 mg PO DAILY doxazosin 2 MG tablet 2 mg PO DAILY cholecalciferol (vitamin D3) 1,000 UNIT capsule 500 unit PO DAILY metformin 500 MG [id number] 500 mg PO DAILY clonidine HCl 0.1 MG tablet extended release 12 hr 0.1 mg PO BID Qty: 60 0RF Primary Care Provider: Dandre Arcos Referrals: Prashanth Bloom MD [Med Staff - Active Staff] - 1 Week Dandre Arcos MD [Primary Care Provider] - Activity Restrictions/Additional Instructions: You fractured your left clavicle. Sling to immobilize your arm. You may take it off to bathe and sleep. Follow-up with [facility]. Ice to the area. Tylenol for pain. Disposition Disposition: Home, Self Care
== END 2022-03-02 12:55 | disposition home or self-care (01) ==
LOC: ED 12:44
PROVIDERS: Emergency Provider Emergency Medicine; PCP Internal Medicine; Visit Provider Emergency Medicine
DX: S42.032A Displaced fracture of lateral end of left clavicle, initial encounter for closed fracture (principal); E11.42 Type 2 diabetes mellitus with diabetic polyneuropathy; I25.10 Atherosclerotic heart disease of native coronary artery without angina pectoris; Z79.01 Long term (current) use of anticoagulants; W19.XXXA Unspecified fall, initial encounter
CPT/HCPCS: 73030; 99283

== ENCOUNTER → 2022-05-16 | Outpatient (CLI) | payer MEDICARE, OTHER, SELFPAY | END | disposition home or self-care (01) | LOC: PSN 14:00 | PROVIDERS: PCP Internal Medicine; Referring Provider Orthopaedic Surgery; Visit Provider Orthopaedic Surgery | DX: Z20.822 Contact with and (suspected) exposure to COVID-19 (principal) | CPT/HCPCS: 87426; C9803 ==

== ENCOUNTER 2022-10-29 17:53 | Emergency (ER) | payer MEDICARE, OTHER, SELFPAY ==
[2022-10-29 17:54] VITALS: BP 141/71; PULSE 70; RESP 20; TEMP 36.3; O2SAT 99; BMI 24.8
[2022-10-29 18:24] LABS: Absolute Lymphocyte Count 0.64 X10^3/uL (0.83-4.51); Absolute Neutrophil Count 2.2 X10^3/uL (2.0-7.7); Basophil# 0.05 X10^3/uL; Basophil% 1.4 % (0-1); Eosinophil# 0.24 X10^3/uL; Eosinophils% 6.8 % (0-5); Hematocrit 45.7 % (40-54); Hemoglobin 14.8 g/dL (13.0-16.5); Lymphocyte # 0.64 X10^3/ul (0.83-4.51); Lymphocyte % 18.2 % (19-41); Mean Corp Hgb Conc 32.4 g/dL (32-36); Mean Corpuscular Hgb 28.1 pg (27.0-32.0); Mean Corpuscular Volume 86.7 fL (80-94); Mean Platelet Vol. 10.1 fl (6.2-12.0); Monocyte# 0.42 X10^3/uL; NRBC Flagged by Analyzer 0 % (0-5); Neutrophil # 2.15 X10^3/uL (2.7-7.7); Neutrophil % 61.3 % (47-70); Platelet Count 247 K/mm3 (150-450); RBC Distribution Width SD 40.9 fl (35.1-43.9); Red Blood Count 5.27 M/mm3 (4.6-6.2); White Blood Count 3.5 K/mm3 (4.4-11.0)
--- NOTE | 2022-10-29 18:25 | EDS_ITS ---
HPI History of Present Illness Chief Complaint: Chest Pain Informant: patient Onset/Context/Timing Onset: Today Activity at onset: gradual Timing: Waxes and wanes Quality: Positive for Pressure Location: Right Chest Current Severity: Mild Maximum Severity: Moderate Narrative Narrative: Patient presents secondary to right-sided chest pain. He states that he developed right upper chest pain that radiated up to the right shoulder. After short time and also rated to the right side of the neck. He states that area is now sore but the pain seems to be moving down into the right lower chest. He does not have significant pain with movement of his right arm. He did get short of breath with the episode. Patient has a history of bypass surgery and had 4 stents placed 2 years ago. [facility] Medical History (Updated 10/29/22 @ 21:[address] Alida Villafana MD) ARF (acute renal failure) CAD (coronary artery disease) Diabetic ankle ulcer DM (diabetes mellitus), type 2 Peripheral neuropathy Home Medications amlodipine 5 mg tablet 10 mg PO DAILY 10/02/13 [History Last Taken 11/29/17 08:00] metoprolol tartrate 50 mg tablet 100 mg PO BID 10/02/13 [History Last Taken 11/29/17 08:00] paroxetine HCl 20 mg tablet 20 mg PO DAILY 10/02/13 [History Last Taken 11/29/17 08:00] ramipril 10 mg capsule 10 mg PO DAILY 10/02/13 [History Last Taken 11/29/17 08:00] atorvastatin 40 mg tablet 80 mg PO DINNER 11/21/13 [History Last Taken 03/31/14] alendronate 70 mg tablet 70 mg PO Q7D@0700 11/28/17 [History Last Taken Unknown] calcium carbonate 600 mg calcium (1,500 mg) tablet 630 mg PO DAILY 11/28/17 [History Last Taken Unknown] cholecalciferol (vitamin D3) 25 mcg (1,000 unit) capsule 500 unit PO DAILY 11/28/17 [History Last Taken Unknown] doxazosin 2 mg tablet 2 mg PO DAILY 11/28/17 [History Last Taken Unknown] omega-3 fatty acids 1,000 mg capsule 1,000 mg PO BID 11/28/17 [History Last Taken Unknown] aspirin 81 mg tablet,delayed release (Adult Aspirin Regimen) 81 mg PO QDAY 11/29/17 [History Last Taken Unknown] clonidine HCl 0.1 mg tablet,extended release,12 hr 0.1 mg PO BID ##60 10/13/18 [Rx Last Taken Unknown] metformin 500 mg 24 hr tablet,extended release 500 mg PO DAILY 10/13/18 [History Last Taken Unknown] Allergy/AdvReac Type Severity Reaction Status Date / Time No Known Allergies Allergy Verified 10/29/22 18:00 Family History Father Hypertension Sister Hypertension Surgical History S/P CABG x 2 S/P laparoscopic cholecystectomy (~11/2017) Trimalleolar fracture of right ankle Social History Smoking Status: Never smoker ROS ROS ED Constitutional Constitutional ED: Denies chills or fever(s) Eyes Eyes: Denies change in vision or discharge from eye(s) ENT ENT ED: Denies discharge from eye(s), rhinorrhea or sore throat Cardiovascular Cardiovascular: Reports chest pain; Denies palpitations Respiratory/Chest Respiratory/Chest: Reports dyspnea; Denies cough Gastrointestinal Gastrointestinal: Reports nausea; Denies abdominal pain or vomiting Genitourinary Genitourinary ED: Denies dysuria Musculoskeletal Musculoskeletal: Reports neck pain; Denies back pain or extremity pain Integumentary Denies Abrasions or rash Neurologic Neurologic: Denies headache(s) or weakness Psychiatric Psychiatric: Denies anxiety or depression Allergic/Immunologic Allergic/Immunologic ED: Denies lip swelling or urticaria EXAM Physical Exam Const Vital Signs: 10/29/22 17:54 10/29/22 18:01 10/29/22 18:30 Temperature 97.3 F L Temperature Source Temporal Pulse Rate 70 64 Respiratory Rate 20 H 14 Respiratory Effort Normal Non-Labored Respiratory Pattern Normal Blood Pressure 141/71 H 125/70 H Blood Pressure Mean 94 88 Pulse Ox 99 100 Oxygen Delivery Method Room Air Room Air 10/29/22 19:16 Temperature Temperature Source Pulse Rate 64 Respiratory Rate 18 Respiratory Effort Respiratory Pattern Blood Pressure 132/63 H Blood Pressure Mean 86 Pulse Ox 99 Oxygen Delivery Method Room Air Positive well nourished and well developed General Appearance ED: well developed HEENT Reports normocephalic and head/scalp atraumatic Eyes PERRL and EOMs intact bilaterally Neck supple Chest Wall inspection of chest normal Chest Narrative: Right chest wall tenderness. No crepitus. No overlying skin change. Resp normal respiratory effort and clear to auscultation bilaterally Cardio regular rate and regular rhythm GI normal to inspection, nondistended, normoactive bowel sounds Palpation: soft Extremity normal to inspection Neuro oriented x3 and no sensory deficits noted Sensorium / Orientation: alert Motor Exam: strength 5/5 throughout Psych mental status grossly normal Skin no rashes or lesions noted Heart Score History: Slightly/Non-Suspicious ECG: Nonspecific Repolarization Age: >/= 65 years Risk Factors: >/= 3 Risk Factors or History of CAD Troponin: </= Normal Limit Score: 5 MDM MDM MDM Narrative Medical decision making narrative: Patient placed on hadoop consultant and given aspirin. EKG obtained to evaluate for cardiac arrhythmia/ischemia. Labwork obtained to evaluate for leukocytosis, anemia, and electrolyte derangement. Chest x-ray obtained to evaluate for acute lung pathology, cardiac size, or mediastinal abnormality. Lab Data Attestation: I reviewed the patient's lab results. Labs: Laboratory Results - last 24 hr 10/29/22 10/29/22 10/29/22 18:00 18:00 18:00 WBC 3.5 L RBC 5.27 Hgb 14.8 Hct 45.7 MCV 86.7 MCH 28.1 MCHC 32.4 RDW Std Deviation 40.9 RDW Coeff of [place] 13.0 Plt Count 247 MPV 10.1 Immature Gran % (Auto) 0.300 Neut % (Auto) 61.3 Lymph % (Auto) 18.2 L [place] % (Auto) 12.0 H Eos % (Auto) 6.8 H Baso % (Auto) 1.4 H Absolute Neuts (auto) 2.2 Absolute Lymphs (auto) 0.64 L Nucleated RBC % 0 D-Dimer Quant (PE/DVT) 1.05 H* Sodium 139 Potassium 3.4 L Chloride 103 Carbon Dioxide 27.0 Anion Gap 9 BUN 33 H Creatinine 1.44 H Estim Creat Clear Calc 49.32 Est GFR (MDRD) Af Amer 61 Est GFR (MDRD) Non-Af 51 L BUN/Creatinine Ratio 22.9 H Glucose 143 H Calcium 9.8 Troponin I High Sens 12 10/29/22 20:25 WBC RBC Hgb Hct MCV MCH MCHC RDW Std Deviation RDW Coeff of [place] Plt Count MPV Immature Gran % (Auto) Neut % (Auto) Lymph % (Auto) [place] % (Auto) Eos % (Auto) Baso % (Auto) Absolute Neuts (auto) Absolute Lymphs (auto) Nucleated RBC % D-Dimer Quant (PE/DVT) Sodium Potassium Chloride Carbon Dioxide Anion Gap BUN Creatinine Estim Creat Clear Calc Est GFR (MDRD) Af Amer Est GFR (MDRD) Non-Af BUN/Creatinine Ratio Glucose Calcium Troponin I High Sens 10 Radiography Chest X-Ray - ED: 1 View, Read by ED Physician, Chronic Changes and No Infiltrates Diagnostic Testing: Clinical Impression(s) from Imaging Studies Chest X-Ray 10/29/22 18:30 IMPRESSION: No acute cardiopulmonary disease. Electronically Signed: Dimas Schmidt DO at 18:49 EDT Reading Location ID and State: [facility] / [employer] [employer] Tel [phone], Service support , Chest CTA 10/29/22 18:50 IMPRESSION: 1. No evidence of pulmonary embolus. 2. No aortic dissection or aneurysm. 3. Marked mediastinal and hilar lymphadenopathy not seen on the [address] 4. No acute pulmonary disease. Electronically Signed: Dimas Schmidt DO at 19:57 EDT Reading Location ID and State: [facility] / [place] Tel [phone], Service support , EKG Initial EKG: Attestation: I personally reviewed and interpreted this EKG as follows: Interpretation: Sinus Rhythm (Sinus at 71 with right bundle branch block. No acute ischemia. Similar in appearance to prior study from February 2021.) Treatment and Re-Evaluation :: CBC is unremarkable. Chemistry studies significant only for slightly low potassium at 3.4. BUN is 33 and creatinine is 1.44. This is a slight increase over his baseline of 1.2. Initial troponin is normal at 12. D-dimer is elevated at 1.05. Chest x-ray per my interpretation reveals chronic changes with no acute abnormality. Radiology interpretation is reviewed. Patient does undergo CTA of the chest. There is no evidence of pulmonary embolism or dissection. Repeat 2-hour troponin is normal at 10. On repeat evaluation at this time patient has no pain. Test results are discussed with him in detail. He is comfortable with outpatient follow-up. Return instructions were provided and he voices understanding and agreement. Discharge Plan Triage Chief Complaint: Chest Pain ED Provider: Alida Villafana Dx/Rx/DC Orders Clinical Impression: Chest pain Instructions: ED Chest Pain, Uncertain Cause Prescriptions: No Action aspirin [Adult Aspirin Regimen] 81 mg tablet,delayed release (DR/EC) 81 mg PO QDAY amlodipine 5 MG tablet 10 mg PO DAILY Label Comments: BLOOD PRESSURE paroxetine HCl 20 MG tablet 20 mg PO DAILY Label Comments: DEPRESSION metoprolol tartrate 50 MG tablet 100 mg PO BID Label Comments: BLOOD PRESSURE/HEART ramipril 10 MG capsule 10 mg PO DAILY Label Comments: BLOOD PRESSURE atorvastatin 40 MG tablet 80 mg PO DINNER Label Comments: CHOLESTEROL omega-3 fatty acids 1,000 MG capsule 1,000 mg PO BID alendronate 70 MG tablet 70 mg PO Q7D@0700 calcium carbonate 600 MG tablet 630 mg PO DAILY doxazosin 2 MG tablet 2 mg PO DAILY cholecalciferol (vitamin D3) 1,000 UNIT capsule 500 unit PO DAILY metformin 500 MG tablet,ER ayanna.retention 24 hr 500 mg PO DAILY clonidine HCl 0.1 MG tablet extended release 12 hr 0.1 mg PO BID Qty: 60 0RF Primary Care Provider: Dandre Arcos Referrals: Buddy Andersen MD [Med Staff - Active Staff] - As Needed Dandre Arcos MD [Primary Care Provider] - 5-7 Days Disposition Disposition: Home, Self Care
[2022-10-29] MEDS: Aspirin 81 MG TAB.CHEW 324 MG PO (18:29)
[2022-10-29 18:30] VITALS: BP 125/70; PULSE 64; RESP 14; O2SAT 100
--- NOTE | 2022-10-29 18:30 | RAD_ITS ---
STUDY: X-RAY CHEST REASON FOR EXAM: Male, 77 years old. Chest pain beginning about 1645 hours. Right chest pain radiating to the neck and shoulder. TECHNIQUE: Single AP portable view of the chest. COMPARISON: April 04, 2014. FINDINGS: The lungs are clear and expanded. There is no demonstrated pleural abnormality. Sternal cerclage wires are present from a prior sternotomy. The heart is normal in size. Normal mediastinum and danelle. Normal visualized pulmonary arteries. Normal visualized aortic arch and descending thoracic aorta. There are diffuse degenerative changes of the visualized thoracic spine. Normal visualized ribs, clavicles, and shoulders. There is no demonstrated abnormality of the visualized soft tissue structures of the upper abdomen. RAD/Chest 1 View (Portable) IMPRESSION: No acute cardiopulmonary disease. Electronically Signed: Dimas Schmidt DO at 18:49 EDT ,
[2022-10-29 18:38] LABS: D-Dimer Quantitative (DVT/PE) 1.05 FEU/ug/m (0.27-0.49)
[2022-10-29 18:42] LABS: Anion Gap 9 (5-15); BUN 33 mg/dL (7-18); BUN/Creat Ratio 22.9 RATIO (10-20); Calcium,Total 9.8 mg/dL (8.5-10.1); Chloride 103 mmol/L (98-107); Creatinine, Serum 1.44 mg/dL (0.70-1.30); EST Glomerular Filtration Rate 51 mL/min (>60); Est Glom Filt Rate - Afr Amer 61 mL/min (>60); Estimated Creatinine Clearance 49.32 ml/min; Glucose 143 mg/dL (74-106); Potassium 3.4 mmol/L (3.5-5.1); Sodium Level 139 mmol/L (136-145); Troponin-I HS (w/2H Reflex) 12 pg/mL (3.0-78.0)
--- NOTE | 2022-10-29 18:50 | CT_ITS ---
STUDY: CTA CHEST REASON FOR EXAM: Male, 77 years old. Right-sided chest pain radiating into neck and shoulder. History of CABG procedure. RADIATION DOSAGE (If Supplied By Facility): CTDIvol = ( 10.82 ) mGy, DLP = ( 408.38 ) mGycm TECHNIQUE: The examination was performed with the intravenous administration of IV 100mL [id number]. Post-processing of the angiographic images was performed, with multiplanar reformation and 3D reconstruction. Individualized dose optimization techniques were used for this CT. COMPARISON: Chest, October 29, 2022. CTA of the chest, April 05, 2014. FINDINGS: Normal enhancement of the main pulmonary artery and right and left pulmonary arteries. Normal enhancement of the bilateral peripheral pulmonary arteries. There is no demonstrated pulmonary embolism. Atherosclerotic changes of the thoracic aorta without aneurysm. There is no demonstrated aortic dissection. Normal heart and pericardium. Coronary artery calcifications Marked mediastinal and bilateral hilar lymphadenopathy. This was not present on the prior CT. Lymphadenopathy is conglomerate and a distinct node is difficult to identify other than 2 separate prevascular lymph nodes. The largest measures 1.8 x 1.4 x 2 cm (image 158, series 2). Normal visualized trachea and bronchi. The lungs are well expanded. Normal pulmonary parenchyma. Normal pleura. Normal chest wall structures. There are degenerative changes of thoracic spine. Normal visualized upper abdomen. CT/CTA Chest W/WO Contrast IMPRESSION: 1. No evidence of pulmonary embolus. 2. No aortic dissection or aneurysm. 3. Marked mediastinal and hilar lymphadenopathy not seen on the [address] 4. No acute pulmonary disease. Electronically Signed: Dimas Schmidt DO at 19:57 EDT ,
[2022-10-29] MEDS: 0.9% Normal Saline 1,000 ML 150 ML IV (19:15)
[2022-10-29 19:16] VITALS: BP 132/63; PULSE 64; RESP 18; O2SAT 99
[2022-10-29 20:20] LABS: Reflex Troponin-HS? (from REC) Y
[2022-10-29 20:57] LABS: Troponin-I HS 10 pg/mL (3.0-78.0)
[2022-10-29 22:03] VITALS: BP 140/80
== END 2022-10-29 22:04 | disposition home or self-care (01) ==
PROVIDERS: Emergency Provider Emergency Medicine; PCP Internal Medicine; Visit Provider Emergency Medicine
DX: R07.9 Chest pain, unspecified (principal); E11.42 Type 2 diabetes mellitus with diabetic polyneuropathy; I25.10 Atherosclerotic heart disease of native coronary artery without angina pectoris; Z79.82 Long term (current) use of aspirin; Z79.84 Long term (current) use of oral hypoglycemic drugs
CPT/HCPCS: 71045; 71275; 80048; 84484; 85025; 85379; 93005; 96360; 96361; 99285; Q9967; A4216

== ENCOUNTER 2024-03-31 11:45 | Emergency (ER) | payer MEDICARE, OTHER, SELFPAY ==
[2024-03-31 11:46] VITALS: BP 147/69; PULSE 56; RESP 16; TEMP 35.8; O2SAT 97; BMI 26.4
--- NOTE | 2024-03-31 12:43 | CT_ITS ---
INDICATION: Injury/Pain EXAMINATION: CT BRAIN - CT Head or Brain W/O Contrast Injection TECHNIQUE: Multiple axial images were obtained of the head without intravenous contrast. The protocol utilizes one or more of the following dose reduction techniques: automated exposure control, adjustment of mA and/or kV according to patient size,and/or use of iterative reconstruction technique. IV Contrast dosage and agent: None. RADIATION DOSAGE (If Supplied By Facility): CTDIvol = ( 44.99 ) mGy, DLP = ( 846.73 ) mGycm COMPARISON: No relevant prior comparison study available FINDINGS: BRAIN PARENCHYMA: No intra- or extra-axial hemorrhage. No evidence of acute infarct. No intracranial mass or mass effect. There is preservation of the allen/white matter interface. Mild chronic periventricular deep white matter changes likely due to microvascular disease. Posterior fossa structures are unremarkable. CSF SPACES: Mild diffuse atrophy. No hydrocephalus. Basal cisterns are patent. CALVARIUM, SKULL BASE, PARANASAL SINUSES AND MASTOID AIR CELLS: Clear. No discrete lytic or blastic abnormalities. ORBITS: Previous bilateral cataract surgery. CT/Brain/Head without Contrast IMPRESSION: No acute intracranial process. Electronically Signed: Yo Valderrama MD at 13:43 EDT ,
--- NOTE | 2024-03-31 12:43 | RAD_ITS ---
INDICATION: Injury/Pain EXAMINATION/TECHNIQUE: X-RAY - LEFT XR Humerus Min 2 Views 2 VIEWS COMPARISON: No relevant prior comparison study available FINDINGS: SOFT TISSUES: No soft tissue swelling or gas. No radiopaque foreign body. BONES/JOINTS: Fracture of the olecranon process of the proximal ulna. No other fracture is seen. Normal alignment. Preservation of the joint space.. No sclerotic or destructive changes observed. RAD/Humerus min 2 Views IMPRESSION: Fracture of the olecranon process of the proximal ulna. Electronically Signed: Yo Valderrama MD at 13:39 EDT ,
--- NOTE | 2024-03-31 12:43 | RAD_ITS ---
INDICATION: Injury/Pain EXAMINATION/TECHNIQUE: X-RAY - LEFT XR Elbow Min 3 Views COMPARISON: No relevant prior comparison study available FINDINGS: SOFT TISSUES: Soft tissue swelling posteriorly. No radiopaque foreign body. BONES/JOINTS: Displaced fracture of the olecranon process of the proximal ulna. Bony density likely representing avulsion fracture of the medial humeral epicondyle. No evidence of dislocation. No sclerotic or destructive changes observed. RAD/Elbow min 3 Views IMPRESSION: Displaced fractures of the olecranon process and of the medial humeral epicondyle. Electronically Signed: Yo Valderrama MD at 13:36 EDT ,
--- NOTE | 2024-03-31 12:43 | RAD_ITS ---
INDICATION: Injury/Pain- thumb injury EXAMINATION/TECHNIQUE: X-RAY - RIGHT XR Hand Min 3 Views 3 VIEWS COMPARISON: No relevant prior comparison study available FINDINGS: SOFT TISSUES: No soft tissue swelling or gas. No radiopaque foreign body. BONES/JOINTS: Nondisplaced fracture of the distal aspect of the distal phalanx of the thumb. The remainder of the osseous structures appears to be intact. Normal alignment. Preservation of the joint space.. No sclerotic or destructive changes observed. RAD/Hand Min 3 Views IMPRESSION: Fracture of the distal phalanx of the thumb. Electronically Signed: Yo Valderrama MD at 13:32 EDT ,
--- NOTE | 2024-03-31 12:43 | CT_ITS ---
INDICATION: Injury/Pain EXAMINATION: CT CERVICAL SPINE - CT Spine Cervical W/O Contrast Injection TECHNIQUE: Helically acquired images were obtained of the cervical spine. 2D reformatted images were reviewed. The protocol utilizes one or more of the following dose reduction techniques: automated exposure control, adjustment of mA and/or kV according to patient size,and/or use of iterative reconstruction technique. IV Contrast dosage and agent: None. RADIATION DOSAGE (If Supplied By Facility): CTDIvol = ( 23.71 ) mGy, DLP = ( 540.43 ) mGycm COMPARISON: No relevant prior comparison study available FINDINGS: VERTEBRAE: No fracture or traumatic subluxation. No discrete lytic or blastic abnormality. Normal alignment. Normal craniocervical junction and cervicothoracic junction. DISCS and SPINAL CANAL: Degenerative changes of the atlantoaxial joint. Narrowing of C4-C5 and C5-C6 disc spaces. Small posterior lateral degenerative spurs on the right side at the level of C5-6 with mild narrowing of the right neural foramina. Otherwise no critical bony stenosis is seen. NECK SOFT TISSUES: No prevertebral soft tissue swelling. Atherosclerotic calcifications of the left carotid artery LUNG APICES: Clear. CT/Spine Cervical without Contras IMPRESSION: 1. No evidence of acute cervical spinal fracture or spondylolisthesis. 2. Degenerative changes. Electronically Signed: Yo Valderrama MD at 13:47 EDT ,
[2024-03-31] MEDS: Morphine 4 MG/ML Syringe IV (12:53)
[2024-03-31] MEDS: Acetaminophen 325 MG Tablet 650 MG PO (12:53)
--- NOTE | 2024-03-31 12:53 | EX.ED.GENINJ ---
HPI History of Present Illness Chief Complaint: Fall Informant: patient Narrative Narrative: Patient is a 78-year-old male presenting for evaluation after a mechanical fall. He was walking his dog today when he tripped on a stick causing him to fall forward. He landed on his knees, landed hard on his left elbow, hit his face and also jammed his right thumb. He denies loss of conscious. Is not on any blood thinners. He was unable to get himself up and a bystander was able to call 911 for him. He is mostly concerned for elbow fracture. Notes that when he blew his nose there was alot of blood that out. Denies any active bleeding at this time. States his knees feel more sore. Notes his thumb also feels sore on the right side. He is right-hand dominant. No other complaints or concerns reported at this time. States he was in his usual state of health when he got up this morning. [facility] Medical History Peripheral neuropathy Diabetic ankle ulcer ARF (acute renal failure) CAD (coronary artery disease) DM (diabetes mellitus), type 2 Home Medications ?Medication ?Instructions ?Recorded ?Last Taken ?Type amlodipine 5 mg tablet 10 mg PO DAILY 10/02/13 11/29/17 08:00 History metoprolol tartrate 50 mg tablet 100 mg PO BID 10/02/13 11/29/17 08:00 History paroxetine HCl 20 mg tablet 20 mg PO DAILY 10/02/13 11/29/17 08:00 History ramipril 10 mg capsule 10 mg PO DAILY 10/02/13 11/29/17 08:00 History atorvastatin 40 mg tablet 80 mg PO DINNER 11/21/13 03/31/14 History alendronate 70 mg tablet 70 mg PO Q7D@0700 11/28/17 Unknown History calcium carbonate 630 mg PO DAILY 11/28/17 Unknown History cholecalciferol (vitamin D3) 25 500 unit PO DAILY 11/28/17 Unknown History mcg (1,000 unit) capsule doxazosin 2 mg tablet 2 mg PO DAILY 11/28/17 Unknown History omega-3 fatty acids 1,000 mg 1,000 mg PO BID 11/28/17 Unknown History capsule aspirin 81 mg tablet,delayed 81 mg PO QDAY 11/29/17 Unknown History release (Adult Aspirin Regimen) clonidine HCl 0.1 mg 0.1 mg PO BID ##60 10/13/18 Unknown Rx tablet,extended release,12 hr metformin 500 mg 24 hr 500 mg PO DAILY 10/13/18 Unknown History tablet,extended release (gastric retention) oxycodone 5 mg tablet 5 mg PO Q6H 3 days #12 tabs 03/31/24 Unknown Rx Allergy/AdvReac Type Severity Reaction Status Date / Time No Known Allergies Allergy Verified 10/29/22 18:00 Family History Father Hypertension Sister Hypertension Surgical History S/P laparoscopic cholecystectomy (~11/2017) S/P CABG x 2 Trimalleolar fracture of right ankle Social History Smoking Status: Never smoker ROS ROS ED Constitutional Constitutional ED: Denies chills or fever(s) Eyes Eyes: Denies blurry vision or change in vision ENT ENT ED: Reports other Details: nose abrasion, epistaxis ; Denies sore throat Cardiovascular Cardiovascular: Denies chest pain Respiratory/Chest Respiratory/Chest: Denies dyspnea Gastrointestinal Gastrointestinal: Denies abdominal pain, nausea or vomiting Musculoskeletal Musculoskeletal: Reports other Details: left elbow pain, knee pain, right thumb pain ; Denies back pain or neck pain Integumentary Reports Abrasions Neurologic Neurologic: Denies headache(s), paresthesias or weakness Hematologic/Lymphatic Hematologic/Lymphatic: Denies easy bleeding or easy bruising EXAM Physical Exam Const Vital Signs: 03/31/24 11:46 03/31/24 11:50 03/31/24 13:45 Temperature 96.5 F L Temperature Source Temporal Pulse Rate 56 L 71 Pulse Rate [Lying] Pulse Rate [Sitting (for 1 minute prior to obtaining)] Pulse Rate [Standing (for 1 minute prior to obtaining)] Respiratory Rate 16 15 Respiratory Effort Normal Respiratory Depth Normal Respiratory Pattern Normal Blood Pressure 147/69 H 159/61 H Blood Pressure [Lying] Blood Pressure [Sitting (for 1 minute prior to obtaining)] Blood Pressure [Standing (for 1 minute prior to obtaining)] Blood Pressure Mean 95 93 Blood Pressure Mean [Lying] Blood Pressure Mean [Sitting (for 1 minute prior to obtaining)] Blood Pressure Mean [Standing (for 1 minute prior to obtaining)] Pulse Ox 97 100 Oxygen Delivery Method Room Air Room Air Room Air 03/31/24 14:06 Temperature Temperature Source Pulse Rate Pulse Rate [Lying] 61 Pulse Rate [Sitting (for 1 minute prior to obtaining)] 64 Pulse Rate [Standing (for 1 minute prior to obtaining)] 62 Respiratory Rate Respiratory Effort Respiratory Depth Respiratory Pattern Blood Pressure Blood Pressure [Lying] 163/75 H Blood Pressure [Sitting (for 1 minute prior to obtaining)] 159/74 H Blood Pressure [Standing (for 1 minute prior to obtaining)] 158/71 H Blood Pressure Mean Blood Pressure Mean [Lying] 104 Blood Pressure Mean [Sitting (for 1 minute prior to obtaining)] 102 Blood Pressure Mean [Standing (for 1 minute prior to obtaining)] 100 Pulse Ox Oxygen Delivery Method Positive well nourished and well developed General Appearance ED: well developed and NAD HEENT HEENT Narrative: Rhinorrhea appreciated. No active epistaxis at this time. Abrasion noted over the right external nose. No deformity or significant swelling of the bridge of the nose. No malocclusion however patient does have upper dentures in. No cephalhematoma appreciated. trauma Nose: Negative for septum abnormal Eyes PERRL and EOMs intact bilaterally Neck full ROM General: Negative for tenderness Chest Wall inspection of chest normal Resp normal respiratory effort and clear to auscultation bilaterally Effort and Inspection: Negative for pain with movement Cardio regular rhythm Rate: regular rate GI normal to inspection, nondistended, normoactive bowel sounds and non-tender Back/Spine normal to inspection Extremity Extremity Narrative: Of the right upper extremity no obvious deformity. No pain with range of motion. Mild tenderness palpation of the right distal phalanx of the thumb. Left upper extremity?swelling and edema noted to the left elbow with decreased range of motion and pain with palpation over the olecranon as well as the distal humerus. Pain with range of motion including supination, pronation, flexion and extension and patient is not tolerate full range of motion of the elbow. No tenderness palpation or deformity of the distal forearm, wrist or hand. Pelvis is stable. Lower extremities no deformity. No pain with range of motion of the hips or knees. Normal extensor mechanism. Normal plantar and dorsal flexion. Compartments are soft. No joint effusions of the knees appreciated. Neuro oriented x3, moves all extremities, no focal motor deficits and no sensory deficits noted Aurora Coma Scale: document GCS findings Spontaneous Oriented Sensorium / Orientation: alert Skin Skin Narrative: Abrasion noted to the nose. Small amount of bruising and very superficial abrasion noted to the bilateral anterior knees consistent with this fall. There is a very superficial abrasion to the right thumb just next to the lateral nail fold with no active bleeding. MDM MDM MDM Narrative Medical decision making narrative: Patient evaluated for injuries after mechanical fall. He did hit his head and has some slight facial trauma. Will obtain CT of the brain as well as cervical spine. Based on physical exam low suspicion for any significant facial fracture including extraocular eye muscle entrapment I do not think he requires a CT of the face. Low suspicion for mandibular fracture. X-ray of the right hand and left elbow also obtained. IV access obtained and patient is given morphine for pain control as well as oral Tylenol. CT of the brain obtained to rule out intracranial hemorrhage or skull fracture. Cervical spine obtained due to patient's age and mechanism to rule out cervical spine fracture. Differential also includes olecranon fracture distal humerus fracture as well as right thumb fracture versus dislocation versus sprain. Patient believes his tetanus is up-to-date and was recently updated by his PCP. Will follow-up outpatient for this. CT of the brain and cervical spine do not show any acute process. X-ray of the left humerus and elbow viewed by myself as well as radiology show a closed displaced olecranon process fracture and medial humeral epicondyle. X-ray of the right hand again reviewed by myself as well as radiology shows a closed nondisplaced right distal phalanx fracture of the thumb. Case discussed with Ortho on-call for [facility] (patient follows with Dr. Thomas there) and I spoke with Dr. Mckeon. He recommends long-arm posterior slab splint at approximately 30 degrees and sling. Will follow-up in the office. Patient declines further pain medication in the emergency room. Will be discharge home with an RX for oxycodone. Is also counseled he can alternate ibuprofen and Tylenol for pain. Will follow-up with [facility] not a minimum has an appointment already for but counseled to call tomorrow. Patient otherwise well-appearing and agreeable to going home. Finger splint is applied to his right thumb as well. He was given return precautions. Patient and family agreeable plan of care. Patient discharged home in stable condition. Radiography Diagnostic Testing: Clinical Impression(s) from Imaging Studies Brain CT 03/31/24 12:43 IMPRESSION: No acute intracranial process. Electronically Signed: Yo Valderrama MD at 13:43 EDT Reading Location ID and State: [facility] / [place] Tel , Service support , Cervical Spine CT 03/31/24 12:43 IMPRESSION: 1. No evidence of acute cervical spinal fracture or spondylolisthesis. 2. Degenerative changes. Electronically Signed: Yo Valderrama MD at 13:47 EDT Reading Location ID and State: [facility] / [place] Tel , Service support , Elbow X-Ray 03/31/24 12:43 IMPRESSION: Displaced fractures of the olecranon process and of the medial humeral epicondyle. Electronically Signed: Yo Valderrama MD at 13:36 EDT Reading Location ID and State: [facility] / [place] Tel , Service support , Hand X-Ray 03/31/24 12:43 IMPRESSION: Fracture of the distal phalanx of the thumb. Electronically Signed: Yo Valderrama MD at 13:32 EDT Reading Location ID and State: [facility] / [place] Tel , Service support , Humerus X-Ray 03/31/24 12:43 IMPRESSION: Fracture of the olecranon process of the proximal ulna. Electronically Signed: Yo Valderrama MD at 13:39 EDT Reading Location ID and State: [facility] / [place] Tel , Service support , Discharge Plan Triage Chief Complaint: Fall ED Provider: Pamela Abraham Dx/Rx/DC Orders Clinical Impression: Closed fracture of left olecranon process, Closed fracture of medial epicondyle of humerus, Closed nondisplaced fracture of distal phalanx of right thumb, Abrasion of face, Contusion of knee, left, Contusion of knee, right Instructions: ED Abrasion, ED Elbow Fracture, ED Fracture, Thumb Prescriptions: New oxycodone 5 mg tablet 5 mg PO Q6H 3 Days Qty: 12 0RF No Action aspirin [Adult Aspirin Regimen] 81 mg tablet,delayed release (DR/EC) 81 mg PO QDAY amlodipine 5 MG tablet 10 mg PO DAILY Patient Comments: BLOOD PRESSURE paroxetine HCl 20 MG tablet 20 mg PO DAILY Patient Comments: DEPRESSION metoprolol tartrate 50 MG tablet 100 mg PO BID Patient Comments: BLOOD PRESSURE/HEART ramipril 10 MG capsule 10 mg PO DAILY Patient Comments: BLOOD PRESSURE atorvastatin 40 MG tablet 80 mg PO DINNER Patient Comments: CHOLESTEROL omega-3 fatty acids 1,000 MG capsule 1,000 mg PO BID alendronate 70 MG tablet 70 mg PO Q7D@0700 calcium carbonate 600 MG tablet 630 mg PO DAILY doxazosin 2 MG tablet 2 mg PO DAILY cholecalciferol (vitamin D3) 1,000 UNIT capsule 500 unit PO DAILY metformin 500 MG tablet,ER ayanna.retention 24 hr 500 mg PO DAILY clonidine HCl 0.1 MG tablet extended release 12 hr 0.1 mg PO BID Qty: 60 0RF Primary Care Provider: Dandre Arcos Referrals: Reza Thomas MD [Med Staff - Active Staff] - 3-5 Days Dandre Arcos MD [Primary Care Provider] - Activity Restrictions/Additional Instructions: You may also take Tylenol as needed for pain. Try to use ibuprofen sparingly as you do have chronic kidney disease. Keep the splint on and wear sling as needed for comfort. Wear thumb splint as needed for comfort. Please follow-up with orthopedics as we discussed. Follow-up with your primary care doctor on your tetanus vaccination status. Print Language: [place] Disposition Disposition: Home, Self Care
[2024-03-31 13:45] VITALS: BP 159/61; PULSE 71; RESP 15; O2SAT 100
[2024-03-31 14:06] VITALS: BP 158/71; BP 159/74; BP 163/75; PULSE 61; PULSE 62; PULSE 64
[2024-03-31 15:00] VITALS: BP 146/75
[2024-03-31 15:14] VITALS: BP 150/75; PULSE 64; RESP 19; TEMP 36.2; O2SAT 98
== END 2024-03-31 15:15 | disposition home or self-care (01) ==
PROVIDERS: Emergency Provider Emergency Medicine; PCP Internal Medicine; Visit Provider Emergency Medicine
DX: S42.442A Displaced fracture (avulsion) of medial epicondyle of left humerus, initial encounter for closed fracture (principal); E11.9 Type 2 diabetes mellitus without complications; S80.01XA Contusion of right knee, initial encounter; S62.524A Nondisplaced fracture of distal phalanx of right thumb, initial encounter for closed fracture; S00.81XA Abrasion of other part of head, initial encounter; I25.10 Atherosclerotic heart disease of native coronary artery without angina pectoris; S80.02XA Contusion of left knee, initial encounter; W01.10XA Fall on same level from slipping, tripping and stumbling with subsequent striking against unspecified object, initial encounter; Y93.K9 Activity, other involving animal care; N17.9 Acute kidney failure, unspecified; Z79.899 Other long term (current) drug therapy; Z79.84 Long term (current) use of oral hypoglycemic drugs; S52.022A Displaced fracture of olecranon process without intraarticular extension of left ulna, initial encounter for closed fracture
CPT/HCPCS: 29125; 70450; 72125; 73060; 73080; 73130; 96374; 99284

== ENCOUNTER → 2024-04-09 | Outpatient (CLI) | payer MEDICARE, OTHER, SELFPAY ==
[2024-04-09 10:52] LABS: Absolute Lymphocyte Count 0.68 X10^3/uL (0.83-4.51); Absolute Neutrophil Count 2.3 X10^3/uL (2.0-7.7); Basophil# 0.05 X10^3/uL; Basophil% 1.4 % (0-1); Eosinophil# 0.21 X10^3/uL; Eosinophils% 5.8 % (0-5); Hematocrit 44.3 % (40-54); Lymphocyte # 0.68 X10^3/ul (0.83-4.51); Lymphocyte % 18.8 % (19-41); Mean Corp Hgb Conc 31.6 g/dL (32-36); Mean Corpuscular Hgb 27.9 pg (27.0-32.0); Mean Corpuscular Volume 88.4 fL (80-94); Mean Platelet Vol. 9.7 fl (6.2-12.0); Monocyte# 0.36 X10^3/uL; Monocyte% 9.9 % (0-10); NRBC Flagged by Analyzer 0 % (0-5); Neutrophil # 2.32 X10^3/uL (2.7-7.7); Neutrophil % 64.1 % (47-70); Platelet Count 269 K/mm3 (150-450); RBC Distribution Width CV 12.7 % (11.6-14.6); RBC Distribution Width SD 41.1 fl (35.1-43.9); Red Blood Count 5.01 M/mm3 (4.6-6.2); White Blood Count 3.6 K/mm3 (4.4-11.0)
[2024-04-09 11:13] LABS: Anion Gap 4 (5-15); BUN 17 mg/dL (7-18); BUN/Creat Ratio 16.2 RATIO (10-20); Calcium,Total 9.4 mg/dL (8.5-10.1); Chloride 107 mmol/L (98-107); Creatinine, Serum 1.05 mg/dL (0.70-1.30); EST Glomerular Filtration Rate 73 mL/min (>60); Est Glom Filt Rate - Afr Amer 88 mL/min (>60); Glucose 196 mg/dL (74-106); Potassium 3.9 mmol/L (3.5-5.1); Sodium Level 140 mmol/L (136-145)
[2024-04-09 11:15] LABS: Hemoglobin A1c 6.5 % (3.8-5.6)
== END | disposition home or self-care (01) ==
LOC: PSN 10:01
PROVIDERS: PCP Internal Medicine; Referring Provider Student in an Organized Health Care Education/Training Program; Visit Provider Student in an Organized Health Care Education/Training Program
DX: Z01.810 Encounter for preprocedural cardiovascular examination (principal); Z01.818 Encounter for other preprocedural examination
CPT/HCPCS: 36415; 80048; 83036; 85025; 93005

== ENCOUNTER 2024-04-11 10:49 | Day surgery (SDC) | payer MEDICARE, OTHER, SELFPAY ==
[2024-04-11] VITALS (10 sets, daily range): BP systolic 122–154; BP diastolic 62–81; PULSE 65–75; RESP 16; TEMP 36.3–36.8; O2SAT 94–98; BMI 24.7
--- NOTE | 2024-04-11 11:15 | RAD_ITS ---
STUDY: X-RAY - LEFT ELBOW REASON FOR EXAM: Male, 78 years old. Intraoperative digital documentation imaging. TECHNIQUE: 3 intraoperative digital documentation view(s) of the elbow. COMPARISON: March 31, 2024 FINDINGS: 3 intraoperative digital documentation views show plate and screw fixation of the olecranon fracture with near-anatomic alignment. RAD/Elbow 2 Views IMPRESSION: Intraoperative digital documentation views. Electronically Signed: Husam Boyer MD at 15:14 EDT ,
[2024-04-11] MEDS: Lactated Ringers 1,000 ML 15 ML IV ×2 (11:25→15:37)
[2024-04-11 11:29] LABS: Bedside Glucose 142 mg/dL (74-106)
--- NOTE | 2024-04-11 11:30 | PRE.ANES_ITS ---
ASA Classification* ASA Classification ASA Classification: 3 Assessment & Plan Anesthesia* Anesthesia Assessment Anesthesia Assessment: Discussed sedation and/or anesthesia options, risks, benefits, and alternatives with patient/parents/legal guardian/POA. Questions invited. The patient/parents/legal guardian/POA seems to understand and agrees to proceed with anesthesia plan. Reviewed the physical assessment, medical history, allergy history and patient home medications list prior to surgery/procedure/anesthetic and documented any changes. Performed airway and anesthesia risk assessments. Anesthesia Type Anesthesia Type: General (see written pre anesthesia record for full assessment) Anesthesia Focused Assessment* Temperature: 97.6 F Pulse Rate: 75 Blood Pressure: 122/73 Respiratory Rate: 16 Pulse Ox: 98 Airway Assessment Mouth opens: >3 cm Mallampati Score: II Focused Labs Anesthesia Preop lab: CBC WBC 3.6 K/mm3 (4.4-11.0) L 04/09/24 10:25 RBC 5.01 M/mm3 (4.6-6.2) 04/09/24 10:25 Hgb 14.0 g/dL (13.0-16.5) 04/09/24 10:25 Hct 44.3 % (40-54) 04/09/24 10:25 Plt Count 269 K/mm3 (150-450) 04/09/24 10:25 CHEMISTRY Potassium 3.9 mmol/L (3.5-5.1) 04/09/24 10:25 Sodium 140 mmol/L (136-145) 04/09/24 10:25 Magnesium 1.9 mg/dL (1.8-2.4) 04/07/14 05:55 Phosphorus 2.6 mg/dL (2.5-4.9) 04/07/14 05:55 BUN 17 mg/dL (7-18) 04/09/24 10:25 Creatinine 1.05 mg/dL (0.70-1.30) 04/09/24 10:25 Glucose 196 mg/dL (74-106) H 04/09/24 10:25 POC Glucose 142 mg/dL (74-106) H 04/11/24 11:10 COAG PT 13.9 SECONDS (11.7-14.9) 03/23/21 21:06 Pre-Assessment Diagnosis/Proposed Procedure Planned Operative Procedure(s): (L) ORIF, Elbow Anesthesia History 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 When Was Last Pacemaker Check QUESTION #4 FULL TEXT: You/Your Family Experience fever (hyperthermia) with Anesthesia Last Oral Intake Last Oral intake: Last Oral Intake NPO since 00:00 04/11/24 11:25 Meds taken in AM with sips of No 04/11/24 11:25 water? Meds patient instructed to take am of surgery PONV PONV - service technician copier: PONV - service technician copier Female No 04/08/24 09:25 HX of Motion Sickness No 04/08/24 09:25 HX of N/V After Surgery No 04/08/24 09:25 Non-Smoker Yes 04/08/24 09:25 Duration of Surgery greater Yes 04/08/24 09:25 than 60 minutes Number of Risk Factors 2 04/08/24 09:25 PONV Score Moderate Risk 04/08/24 09:25 Height & Weight Height & Weight: Anesthesia: Height & Weight Height 6 ft 1 in 04/11/24 11:25 Weight: 85 kg 04/11/24 11:25 Body Mass Index (BMI) 24.7 04/11/24 11:25 Respiratory Assessment Respiratory Assessment - service technician copier: Respiratory Tract Infection Hx - service technician copier Hx Respiratory Tract Infection No 04/08/24 09:25 STOP Sleep Apnea STOP Sleep Apnea - service technician copier: STOP Sleep Apnea - service technician copier Hx Hypertension Yes: CONTROLLED ON MEDS 04/08/24 09:25 Hx Sleep Apnea No 04/08/24 09:25 CPAP No 04/08/24 09:25 BIPAP No 04/08/24 09:25 Do you snore loudly (louder No 04/08/24 09:25 than talking or can be heard Do you often feel tired/ No 04/08/24 09:25 fatigued/ sleepy during daytime? Has anyone observed you stop No 04/08/24 09:25 breathing during sleep? STOP Results Negative 04/08/24 09:25 QUESTION #5 FULL TEXT : Do you snore loudly (louder than talking or can be heard through closed doors)? 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 Specify any problems Hx of Preganancy in last 3 N/A 04/08/24 09:25 Months Nurse Filling Out Transfusion VCHRISTIN 04/08/24 09:25 & Questions: Date: 04/08/24 04/08/24 09:25 Time: 09:27 04/08/24 09:25 Patient unable to answer at this time (ie. confused, unrespo /Reproduction History /Reproductive History - service technician copier: /Reproductive Hx- service technician copier Hx Now Gestational Age (in weeks): EDC: Hx Hx Para Hx Section SAB Active Medications Active Medications: Current Medications Generic Name Dose Route Start Last Admin Trade Name Freq PRN Reason Stop Dose Admin Cefazolin Sodium 2 gm/ Sodium 110 mls @ 150 mls/hr 04/11/24 12:15 Chloride IV 04/11/24 12:58 PREOP ONE Lactated Ringer's 1,000 mls @ 15 mls/hr 04/11/24 11:00 04/11/24 11:25 IV 15 mls/hr .Q48H MONICA Administration PFSH Medical History Wears dentures Wears glasses Cancer Depression Anxiety Diabetes Arthritis Kidney stone High cholesterol Chronic diarrhea Former smoker History of edema Hypertension Cardiology follow-up encounter History of heart attack History of trigger finger Hx of fracture of clavicle Peripheral neuropathy Diabetic ankle ulcer ARF (acute renal failure) CAD (coronary artery disease) DM (diabetes mellitus), type 2 Home Medications ?Medication ?Instructions ?Recorded ?Last Taken ?Type amlodipine 5 mg tablet 10 mg PO DAILY 10/02/13 04/10/24 History paroxetine HCl 20 mg tablet 20 mg PO DAILY 10/02/13 04/10/24 History ramipril 10 mg capsule 10 mg PO BID 10/02/13 04/10/24 History atorvastatin 40 mg tablet 80 mg PO DINNER 11/21/13 04/10/24 History carvedilol 6.25 mg tablet 6.25 mg PO BID 04/08/24 04/10/24 History empagliflozin 25 mg tablet 25 mg PO DAILY 04/08/24 04/10/24 History (Jardiance) multivitamin (Daily Multi-Vitamin 1 tab PO DAILY 04/08/24 04/10/24 History tablet) omega 3 350 mg-dha 235 mg-epa 90 1 cap PO DAILY 04/08/24 04/10/24 History mg-fish oil 597 mg capsule,delay rel ([place]-3) Allergy/AdvReac Type Severity Reaction Status Date / Time No Known Allergies Allergy Verified 04/11/24 11:23 Family History Father Hypertension Sister Hypertension Surgical History Hx of colonoscopy History of cardiac catheterization History of coronary artery stent placement S/P laparoscopic cholecystectomy (~11/2017) S/P CABG x 2 Trimalleolar fracture of right ankle Social History Smoking Status: Never smoker Review of Systems (Anesthesia) ROS Narrative System reviewed and no additional complaints, except as documented.
[2024-04-11] MEDS: Cefazolin 2 GM in 0.9% Normal Saline (100mL Bag) 100 ML IV (13:47)
[2024-04-11] MEDS: Lidocaine 1%/Epi 1:200 (30ml) 30 ML AMPUL (14:52)
--- NOTE | 2024-04-11 15:08 | PCM.POST.ANE ---
Anesthesia: Postop Eval I Current Vital Signs Temperature: 98.3 F Pulse Rate: 71 Blood Pressure: 150/68 Respiratory Rate: 16 Pulse Ox: 96 Oxygen Delivery Method: Room Air Assessment Airway patent: Yes Spontaneous unlabored respirations: Yes Mental status: Awake and Calm nausea: No Vomiting: No Anesthesia Complication: No Fluid Hydration Crystalloid volume administer (ml): 1,000 Total IV fluid infused: 1,000 Progress Note Anesthesia document: Postop Eval 1 completed: Yes
--- NOTE | 2024-04-11 15:16 | OP.PCM_ITS ---
Report of Operation Date of Procedure: 04/11/24 Description of Surgical Findings:: Preoperative diagnosis: Left displaced olecranon fracture Postoperative diagnosis: Left displaced olecranon fracture Procedure: Open reduction internal fixation Left olecranon Surgeon: Rosalio Mckeon DO Signal Worker Helper: Lotus Castro PA-C Anesthesia: General endotracheal Anesthesiologist: Dr. Marcum Complications: None apparent Drains: None Estimated blood loss: 25 cc Urinary output: None IV fluids: Per anesthesia record Specimens: None Surgical implants: Synthes VA-LCP proximal olecranon plate 2.7/3.5 Left 2 hole with combination of cortical and locking screws. Surgical indications: This is a 78-year-old male who was injured after a mechanical fall on 03/31/2024. He sustained a displaced left olecranon fracture. There was also a small avulsion off the medial epicondyle of the distal humerus. He had a nondisplaced distal phalanx fracture on the contralateral thumb. He was seen in the outpatient setting after initial splinting in the emergency department. Surgical invention was recommended in the form of open reduction internal fixation Left olecranon. Risks, benefits, and alternatives to the procedure reviewed with the patient at length and he agreed to proceed. Risks included but were not limited to bleeding, infection, loss of life or limb, need for additional surgery, persistent pain, nonhealing bone or wounds, symptomatic hardware, neurovascular injury, stiffness, DVT or PE. Informed consent obtained. Description of procedure: Patient was identified in the preoperative holding area by name, medical record number, and date of . The operative extremities marked. All questions were answered to the patient satisfaction. Supraclavicular block was administered by anesthesia prior to the procedure. At time of his procedure, patient brought the op suite positioned supine resting operative table. General anesthesia was induced and LMA placed. Patient was then positioned in lateral decubitus position. An axillary roll was placed. All bony prominences were well-padded. He was held in lateral decubitus position with a beanbag. Beanbag was deflated. The operative extremity was placed over radiolucent post. A well-padded pneumatic tourniquet was applied to the Left upper arm. We prepped and draped the Left upper extremity in normal, sterile orthopedic fashion. We performed timeout confirming the side, site, operation be performed. No concerns voiced elected proceed with surgery. Patient was administered 2 g Ancef prior to incision by anesthesia staff IV. I then exsanguinated the Left upper extremity Esmarch bandage. Tourniquet inflated to 250 mmHg which made up for approximately 25 minutes. Esmarch was removed. A standard longitudinal approach was then utilized to the proximal ulna curving slightly over the olecranon process. Full-thickness skin flaps were developed down to level of the fascia. Fracture was encountered. Fascia was then opened proximal and distal to the fracture site. Fracture hematoma was debrided. Fracture was irrigated. I then drilled along the ulnar cortex distal to the fracture and placed a olecranon fracture reduction clamp with excellent compression and reapproximation and anatomy. An orthogonal K wire was then placed for provisional fixation. Orthogonal fluoroscopy confirmed anatomic reduction. I then selected a 2 hole olecranon plate. The triceps tendon was split in line with the ulnar crest to allow the plate to contact bone more effectively. Plate was then compressed down to bone with BB tacks. Cortical screws were placed in the proximal and distal segments. The proximal cluster was then filled with locking screws, unicortical. I then placed a compression eccentric 3.5 millimeter screw in the oblong hole of the plate distally and achieved additional compression across the fracture site after the K wire was removed as well as the clamp. An additional 2.7 mm bicortical shaft screw was placed to complete our fixation. Final fluoroscopic images demonstrated anatomically reduced olecranon and appropriately sized and positioned hardware. Stable fracture following fixation. Tourniquet was deflated. Wound was copiously irrigated with normal saline solution. I anesthetized the wound with 10 cc total 1% lidocaine with epinephrine. The fascia was closed watertight with interrupted eclfla-sm-dlpta 0 Vicryl suture. Dermis was reapproximated buried 2-0 Vicryl suture. Skin was finally reapproximated surgical archana. A sterile compression dressing was applied. Xeroform was applied to the superficial abrasion. Soft dressing was applied. Patient was placed in a simple sling. He was repositioned supine and safely extubated the operative suite. He was transferred to PACU in stable condition. Need for skilled tax accounting assistant: Lotus Castro PA-C was critical to the outcome of the case. During the course of the procedure the physician tax accounting assistant played a vital role. Her intimate knowledge of my steps in the procedure aided in safe and expedient completion of the procedure. The PA played a vital role in positioning particularly in obtaining the appropriate positioning. The PA was also vital in the retraction of soft tissues during the exposure, fracture reduction, hardware placement, and protecting vital structures. She also played a vital role in closure with my direct supervision. Post Operative Plan: Weightbearing: Nonweightbearing operative extremity. Gentle range of motion to the Left elbow. Antibiotics: 1 dose of 2 g Ancef administered prior to tourniquet inflation DVT Prophylaxis: Early ambulation, continue home aspirin. Pritchard: None Dressing: Maintain surgical dressing until postoperative day #3 then okay to shower and remove. X-Rays: None Pain Medication: Narcotic prescription provided as an outpatient. Encouraged Tylenol and judicious use of NSAID. Follow-up: 2 weeks in the office with x-rays upon arrival. Plan to remove archana at that time and consider physical therapy.
--- NOTE | 2024-04-11 15:40 | POSTOPAN2_ITS ---
Anesthesia Postop Eval I Sum Postop Eval Completion status Anesthesia document: Postop Eval 1 completed: Yes Anesthesia Postop Eval I Summary Anesthesia Postop Eval I Summary: Anesthesia Postop Eval I: Assessment Summary Airway patent Yes 04/11/24 15:09 RANCH [email or web address] Spontaneous unlabored Yes 04/11/24 15:09 RANCH [email or web address].OT respirations Mental status Awake,Calm 04/11/24 15:09 RANCH [email or web address].[email or web address] nausea No 04/11/24 15:09 RANCH [email or web address] Vomiting No 04/11/24 15:09 RANCH [email or web address] Anesthesia Postop Eval I: Fluid Summary Crystalloid volume administer 1,000 04/11/24 15:09 RANCH [email or web address].MDOT (ml) Colloids volume administered ( ml) Blood Product volume administered (ml) Total IV fluid infused 1,000 04/11/24 15:09 RANCH [email or web address] Anesthesia Postop Eval I: Summary Notes Anesthesia Complication No 04/11/24 15:09 RANCH HELPER.OT Anesthesia Complication Comment: Post-operative progress note Anesthesia: Postop Eval II Evaluation Mental status: Awake Pain Level: 0 nausea: No Vomiting: No
--- NOTE | 2024-04-11 15:40 | PCM.POSTANE2 ---
Anesthesia Postop Eval I Sum Postop Eval Completion status Anesthesia document: Postop Eval 1 completed: Yes Anesthesia Postop Eval I Summary Anesthesia Postop Eval I Summary: Anesthesia Postop Eval I: Assessment Summary Airway patent Yes 04/11/24 15:09 DIRECTOR REGULATORY [email or web address] Spontaneous unlabored Yes 04/11/24 15:09 DIRECTOR REGULATORY [email or web address].OT respirations Mental status Awake,Calm 04/11/24 15:09 DIRECTOR REGULATORY [email or web address] nausea No 04/11/24 15:09 DIRECTOR REGULATORY [email or web address].MDOT Vomiting No 04/11/24 15:09 DIRECTOR REGULATORY [email or web address] Anesthesia Postop Eval I: Fluid Summary Crystalloid volume administer 1,000 04/11/24 15:09 DIRECTOR REGULATORY [email or web address].MDOT (ml) Colloids volume administered ( ml) Blood Product volume administered (ml) Total IV fluid infused 1,000 04/11/24 15:09 DIRECTOR REGULATORY [email or web address] Anesthesia Postop Eval I: Summary Notes Anesthesia Complication No 04/11/24 15:09 DIRECTOR REGULATORY COMPLIANCE.OT Anesthesia Complication Comment: Post-operative progress note Anesthesia: Postop Eval II Evaluation Mental status: Awake Pain Level: 0 nausea: No Vomiting: No
[2024-04-11] MEDS: oxyCODONE 5 MG Tablet PO (16:41)
== END 2024-04-11 17:19 | disposition home or self-care (01) ==
LOC: SDC 10:50 → AC 10:53
PROVIDERS: PCP Internal Medicine; Referring Provider Student in an Organized Health Care Education/Training Program; Visit Provider Student in an Organized Health Care Education/Training Program
PROC: (CPT 24685; principal; 2024-04-11 12:00)
DX: S52.022A Displaced fracture of olecranon process without intraarticular extension of left ulna, initial encounter for closed fracture (principal); E11.42 Type 2 diabetes mellitus with diabetic polyneuropathy; S62.524A Nondisplaced fracture of distal phalanx of right thumb, initial encounter for closed fracture; E66.3 Overweight; I10 Essential (primary) hypertension; Z68.27 Body mass index [BMI] 27.0-27.9, adult; W01.0XXA Fall on same level from slipping, tripping and stumbling without subsequent striking against object, initial encounter; Y93.K1 Activity, walking an animal; I25.10 Atherosclerotic heart disease of native coronary artery without angina pectoris; Z95.1 Presence of aortocoronary bypass graft; E78.00 Pure hypercholesterolemia, unspecified; Z95.5 Presence of coronary angioplasty implant and graft; Z90.49 Acquired absence of other specified parts of digestive tract
CPT/HCPCS: 24685; 73070; 76000; 82962; C1713; J7120; J2405

== ENCOUNTER 2024-09-13 23:22 | Emergency (ER) | payer MEDICARE, OTHER, SELFPAY ==
[2024-09-13 23:23] VITALS: BP 180/91; PULSE 72; RESP 18; TEMP 36.6; O2SAT 99; BMI 25.8
--- NOTE | 2024-09-13 23:45 | EKG12_ITS ---
Test Reason : CP Blood Pressure : */* mmHG Vent. Rate : 72 BPM Atrial Rate : 72 BPM P-R Int : 194 ms QRS Dur : 174 ms QT Int : 440 ms P-R-T Axes : 40 -62 17 degrees QTcB Int : 481 ms Normal sinus rhythm Left axis deviation Right bundle branch block Septal infarct , age undetermined Abnormal ECG Confirmed by Kailash Cortes ([id number]), book or script editor LEIDY SALAZAR ([id number]) on 09/16/2024 9:59:36 AM Referred By: KARY Confirmed By: Kailash Cortes
--- NOTE | 2024-09-13 23:47 | EX.ED.DYSGE1 ---
HPI History of Present Illness Chief Complaint: Chest Pain Informant: patient and spouse/S.O. Narrative Narrative: Patient is a 79-year-old male with past medical history of type 2 diabetes hypertension hyperlipidemia and known CAD status post bypass and 2002 and non-STEMI requiring stent placement 2 or 3 years ago. Patient states this evening he was sitting at home watching TV when he developed sharp midsternal chest discomfort with slight radiation towards the right shoulder. He states there was no associated nausea vomiting or diaphoresis. He reports symptoms lasted for about 20 to 30 minutes and has since resolved. He reports 2 or 3 years ago when he had his non-STEMI the symptoms were the exact same and therefore he presents for evaluation [facility] Medical History Wears dentures Wears glasses Cancer Depression Anxiety Diabetes Arthritis Kidney stone High cholesterol Chronic diarrhea Former smoker History of edema Hypertension Cardiology follow-up encounter History of heart attack History of trigger finger Hx of fracture of clavicle Peripheral neuropathy Diabetic ankle ulcer ARF (acute renal failure) CAD (coronary artery disease) DM (diabetes mellitus), type 2 Home Medications ?Medication ?Instructions ?Recorded ?Last Taken ?Type amlodipine 5 mg tablet 10 mg PO DAILY 10/02/13 04/10/24 History paroxetine HCl 20 mg tablet 20 mg PO DAILY 10/02/13 04/10/24 History ramipril 10 mg capsule 10 mg PO BID 10/02/13 04/10/24 History atorvastatin 40 mg tablet 80 mg PO DINNER 11/21/13 04/10/24 History carvedilol 6.25 mg tablet 6.25 mg PO BID 04/08/24 04/10/24 History empagliflozin 25 mg tablet 25 mg PO DAILY 04/08/24 04/10/24 History (Jardiance) multivitamin (Daily Multi-Vitamin 1 tab PO DAILY 04/08/24 04/10/24 History tablet) omega 3 350 mg-dha 235 mg-epa 90 1 cap PO BID 04/08/24 04/10/24 History mg-fish oil 597 mg capsule,delay rel (Haxtun-3) Allergy/AdvReac Type Severity Reaction Status Date / Time No Known Allergies Allergy Verified 09/13/24 23:22 Family History Father Hypertension Sister Hypertension Surgical History Hx of colonoscopy History of cardiac catheterization History of coronary artery stent placement S/P laparoscopic cholecystectomy (~11/2017) S/P CABG x 2 Trimalleolar fracture of right ankle Social History Smoking Status: Never smoker ROS ROS ED Constitutional Constitutional ED: Denies chills or fever(s) Eyes Eyes: Denies blurry vision or change in vision ENT ENT ED: Denies sore throat Cardiovascular Cardiovascular: Reports chest pain; Denies palpitations or racing heartbeat Respiratory/Chest Respiratory/Chest: Denies cough or dyspnea Gastrointestinal Gastrointestinal: Denies abdominal pain, diarrhea, nausea or vomiting Genitourinary Genitourinary ED: Denies dysuria Musculoskeletal Musculoskeletal: Denies back pain Integumentary Denies rash Neurologic Neurologic: Denies headache(s) Hematologic/Lymphatic Hematologic/Lymphatic: Denies easy bleeding or easy bruising EXAM Physical Exam Const Vital Signs: 09/13/24 23:23 09/14/24 00:00 09/14/24 00:00 Temperature 97.8 F Temperature Source Oral Pulse Rate 72 74 Respiratory Rate 18 14 Blood Pressure 180/91 H 193/171 H 193/171 H Blood Pressure Mean 120 179 179 Pulse Ox 99 Oxygen Delivery Method Room Air 09/14/24 00:15 09/14/24 00:30 09/14/24 00:32 Temperature Temperature Source Pulse Rate 70 73 72 Respiratory Rate 18 21 H 15 Blood Pressure 155/69 H 177/75 H Blood Pressure Mean 92 96 Pulse Ox 97 99 98 Oxygen Delivery Method 09/14/24 00:45 09/14/24 00:47 09/14/24 01:01 Temperature Temperature Source Pulse Rate 70 73 Respiratory Rate 15 13 Blood Pressure 185/64 H Blood Pressure Mean 97 Pulse Ox 97 98 Oxygen Delivery Method 09/14/24 01:15 09/14/24 01:30 09/14/24 01:45 Temperature Temperature Source Pulse Rate 74 76 78 Respiratory Rate 18 18 18 Blood Pressure 163/74 H Blood Pressure Mean 98 Pulse Ox 96 94 95 Oxygen Delivery Method 09/14/24 02:00 09/14/24 02:39 09/14/24 02:50 Temperature 97.4 F L 97.9 F Temperature Source Pulse Rate 79 73 78 Respiratory Rate 18 18 18 Blood Pressure 170/74 H 170/74 H 137/85 H Blood Pressure Mean 102 106 102 Pulse Ox 95 95 96 Oxygen Delivery Method Positive well nourished and well developed General Appearance ED: well developed; Negative for pallor HEENT HEENT Narrative: Normocephalic atraumatic Eyes PERRL and EOMs intact bilaterally Neck supple and no JVD Chest Wall palpation of chest normal Chest Narrative: No bony deformity or crepitance/subcutaneous emphysema noted Resp normal respiratory effort Resp Narrative: Patient has faint rhonchi in the bilateral lower lobes without nasal flaring retractions tachypnea or accessory muscle use Cardio regular rate and regular rhythm Rate: other Other Details: Heart is regular rate and rhythm with a grade 3 out of 6 systolic murmur noted Radial and carotid pulses are equal and symmetric GI normal to inspection, nondistended, normoactive bowel sounds, non-tender, non-distended and no masses GI Narrative: No voluntary guarding or rigidity or pulsatile mass Auscultation: normoactive bowel sounds Palpation: soft Extremity normal to inspection Extremity Narrative: No asymmetric edema no pitting edema negative Homans' sign bilaterally Neuro oriented x3, CN's II-XII intact bilaterally and no sensory deficits noted Sensorium / Orientation: alert Motor Exam: strength 5/5 throughout Psych mental status grossly normal Skin no rashes or lesions noted, no wounds and skin turgor normal General Skin Exam: Negative for jaundice or pallor MDM MDM MDM Narrative Medical decision making narrative: Patient arrived to the ER hypertensive but has a past medical history of this. He reported midsternal chest discomfort which was sharp in nature that lasted for 10 to 20 minutes prior to arrival. He did not have associated nausea vomiting or diaphoresis but he has history of known coronary artery disease with need for bypass roughly 20 years ago and stent placement 2 to 3 years ago. With concern this is related to potential ACS a basic workup was obtained. There is also concern that the patient's discomfort is due to pneumonia versus pneumothorax or atypical pancreatitis. Patient's chest x-ray revealed no acute infiltrate or pneumothorax but it did show a air-fluid level concerning for potential small bowel obstruction. The patient does have previous abdominal surgeries and is at risk for this but his exam does not suggest it. However as it is a potential cause of his pain I did elect to perform a CT scan with IV contrast which revealed no acute intestinal pathology. The patient's initial troponin was 9 his 2-hour delta remained flat at a value of 10. The patient's blood pressure improved spontaneously in the ER and he reported resolution of his pain upon arrival and he remained absent for his ER stay. Therefore at this time as x-ray shows no sign of lung pathology such as pneumonia or pneumothorax and EKG and lab work revealed no signs of ACS or acute cardiac dysrhythmia and CT scan reveals no signs of abdominal pathology such as acute pancreatitis or small bowel obstruction I do not feel there is need for further intervention or inpatient workup and he is otherwise safe for discharge. We did discuss potential D-dimer or CTA of the chest secondary to concern for dissection versus PE but the patient is not tachycardic he does not have pleuritic chest pain and his pain has spontaneously improved without intervention and he denies any neurologic symptoms and this goes against a PE or dissection and therefore I felt there is no need for D-dimer or further imaging History & Record Review Discussion w/independent historian: Patient Lab Data Attestation: I reviewed the patient's lab results. Labs: Laboratory Results - last 24 hr 09/13/24 09/14/24 23:36 01:45 WBC 3.4 L RBC 5.40 Hgb 15.2 Hct 47.3 MCV 87.6 MCH 28.1 MCHC 32.1 RDW Std Deviation 44.7 H RDW Coeff of Suma 14.0 Plt Count 213 MPV 10.3 Immature Gran % (Auto) 1.200 H Neut % (Auto) 46.7 L Lymph % (Auto) 30.9 Beaver % (Auto) 11.8 H Eos % (Auto) 8.2 H Baso % (Auto) 1.2 H Absolute Neuts (auto) 1.6 L Absolute Lymphs (auto) 1.05 Nucleated RBC % 0 Sodium 140 Potassium 3.9 Chloride 107 Carbon Dioxide 27.0 Anion Gap 7 BUN 20 H Creatinine 1.10 Estim Creat Clear Calc 62.55 Est GFR (MDRD) Af Amer 83 Est GFR (MDRD) Non-Af 69 BUN/Creatinine Ratio 18.2 Glucose 108 H Calcium 9.3 Magnesium 2.5 Troponin I High Sens 9 10 Radiography Diagnostic Testing: Clinical Impression(s) from Imaging Studies Chest X-Ray 02/21/25 23:59 IMPRESSION: 1. No radiographic evidence of acute cardiopulmonary disease. 2. Air-fluid level in the upper abdomen which can be seen in inflammatory and obstructive processes [facility]Pelvis CT 09/14/24 00:29 IMPRESSION: 1. Abnormal fluid level on chest radiograph was stomach with partially filled food content 2. Hepatic steatosis 3. Prostatomegaly 4. Chronic pancreatitis One or more dose reduction techniques were used (e.g., Automated exposure control, adjustment of the mA and/or kV according to patient size, use of iterative reconstruction technique). Reading Location: [facility] Chest x-ray as interpreted by the emergency medicine physician reveals no acute infiltrate pneumothorax pleural effusion or widening of the mediastinum. There is a potential air-fluid level in the upper abdomen Discharge Plan Triage Chief Complaint: Chest Pain ED Provider: Lyle Alford Dx/Rx/DC Orders Clinical Impression: Nonspecific chest pain, Hypertension, DM (diabetes mellitus), type 2, CAD (coronary artery disease) Instructions: ED Chest Pain, Uncertain Cause, ED Hypertension, Established Prescriptions: No Action amlodipine 5 MG tablet 10 mg PO DAILY Patient Comments: BLOOD PRESSURE paroxetine HCl 20 MG tablet 20 mg PO DAILY Patient Comments: DEPRESSION ramipril 10 MG capsule 10 mg PO BID Patient Comments: BLOOD PRESSURE atorvastatin 40 MG tablet 80 mg PO DINNER Patient Comments: CHOLESTEROL carvedilol 6.25 mg tablet 6.25 mg PO BID Jardiance 25 mg tablet 25 mg PO DAILY multivitamin [Daily Multi-Vitamin] Tablet 1 tab PO DAILY Haxtun-3 350 mg-235 mg- 90 mg-597 mg capsule,delayed release(DR/EC) 1 cap PO BID Primary Care Provider: Dandre Arcos Referrals: Dandre Arcos MD [Primary Care Provider] - Activity Restrictions/Additional Instructions: Your workup today showed a normal sinus rhythm EKG and 2 normal troponins going against active heart damage. Continue all of your home medication as directed by your doctor and return to the ER should you have any further concerns or worsening symptoms Print Language: Irish Disposition Disposition: Home, Self Care Discharge Date/Time: 09/14/24 02:51
[2024-09-13] MEDS: Aspirin 81 MG TAB.CHEW 324 MG PO (23:53)
--- NOTE | 2024-09-13 23:59 | RAD_ITS ---
PROCEDURE: CHEST PA AND LATERAL REASON FOR EXAM: Chest pain TECHNIQUE: Frontal and lateral views of the chest. COMPARISON: 10/29/2022 FINDINGS: The heart size is normal. There are atherosclerotic calcifications of the thoracic aorta. The lungs are clear. The bones are unremarkable. Abdomen: Air-fluid level in the upper abdomen RAD/Chest PA and Lateral IMPRESSION: 1. No radiographic evidence of acute cardiopulmonary disease. 2. Air-fluid level in the upper abdomen which can be seen in inflammatory and obstructive processes Reading Location: [facility]
[2024-09-14] VITALS (13 sets, daily range): BP systolic 137–193; BP diastolic 64–171; PULSE 70–79; RESP 13–21; TEMP 36.3–36.6; O2SAT 94–99
[2024-09-14 00:02] LABS: Absolute Lymphocyte Count 1.05 X10^3/uL (0.83-4.51); Absolute Neutrophil Count 1.6 X10^3/uL (2.0-7.7); Basophil# 0.04 X10^3/uL; Basophil% 1.2 % (0-1); Eosinophil# 0.28 X10^3/uL; Eosinophils% 8.2 % (0-5); Hematocrit 47.3 % (40-54); Hemoglobin 15.2 g/dL (13.0-16.5); Lymphocyte # 1.05 X10^3/ul (0.83-4.51); Lymphocyte % 30.9 % (19-41); Mean Corp Hgb Conc 32.1 g/dL (32-36); Mean Corpuscular Hgb 28.1 pg (27.0-32.0); Mean Corpuscular Volume 87.6 fL (80-94); Mean Platelet Vol. 10.3 fl (6.2-12.0); Monocyte% 11.8 % (0-10); NRBC Flagged by Analyzer 0 % (0-5); Neutrophil # 1.59 X10^3/uL (2.7-7.7); Neutrophil % 46.7 % (47-70); Platelet Count 213 K/mm3 (150-450); RBC Distribution Width SD 44.7 fl (35.1-43.9); White Blood Count 3.4 K/mm3 (4.4-11.0)
[2024-09-14 00:13] LABS: Anion Gap 7 (5-15); BUN 20 mg/dL (7-18); BUN/Creat Ratio 18.2 RATIO (10-20); Calcium,Total 9.3 mg/dL (8.5-10.1); Chloride 107 mmol/L (98-107); EST Glomerular Filtration Rate 69 mL/min (>60); Est Glom Filt Rate - Afr Amer 83 mL/min (>60); Estimated Creatinine Clearance 62.55 ml/min; Glucose 108 mg/dL (74-106); Magnesium 2.5 mg/dL (1.6-2.6); Potassium 3.9 mmol/L (3.5-5.1); Sodium Level 140 mmol/L (136-145); Troponin-I HS 9 pg/mL (3.0-78.0)
--- NOTE | 2024-09-14 00:29 | CT_ITS ---
PROCEDURE: ABDOMEN/PELVIS W IV CONT ONLY REASON FOR EXAM: Abnormal x-ray TECHNIQUE: Abdomen and pelvis CT with intravenous contrast. COMPARISON: None. FINDINGS: Lung bases: Clear Stomach: Partially filled with food content Liver: Diffuse fatty infiltration. Gallbladder: Surgically absent. Spleen: Normal size. Pancreas: Calcifications likely representing chronic pancreatitis Adrenals: Unremarkable. Kidneys: No hydronephrosis with 1 cm or less hypodensities consistent with cysts Bladder: Unremarkable. Reproductive Organs: Prostate measures 5.8 cm in transverse dimension Bowel: Unremarkable. Appendix: Normal. Lymph nodes: No suspicious lymph node enlargement. Vasculature: Major vascular structures are unremarkable. Peritoneum / Retroperitoneum: No ascites. No free air. Bones: Unremarkable. CT/Abdomen/Pelvis W IV Cont ONLY IMPRESSION: 1. Abnormal fluid level on chest radiograph was stomach with partially filled food content 2. Hepatic steatosis 3. Prostatomegaly 4. Chronic pancreatitis One or more dose reduction techniques were used (e.g., Automated exposure contr ol, adjustment of the mA and/or kV according to patient size, use of iterative reconstruction technique). Reading Location: [facility]
[2024-09-14] MEDS: 0.9% Normal Saline (500mL Bag) 500 ML 999 ML IV (01:02)
[2024-09-14 02:07] LABS: Troponin-I HS 10 pg/mL (3.0-78.0)
== END 2024-09-14 02:51 | disposition home or self-care (01) ==
PROVIDERS: Emergency Provider Emergency Medicine; PCP Internal Medicine; Visit Provider Emergency Medicine
DX: R07.9 Chest pain, unspecified (principal); E11.42 Type 2 diabetes mellitus with diabetic polyneuropathy; E78.00 Pure hypercholesterolemia, unspecified; I10 Essential (primary) hypertension; I25.10 Atherosclerotic heart disease of native coronary artery without angina pectoris; I25.2 Old myocardial infarction; Z95.1 Presence of aortocoronary bypass graft; Z82.49 Family history of ischemic heart disease and other diseases of the circulatory system; Z95.5 Presence of coronary angioplasty implant and graft; Z90.49 Acquired absence of other specified parts of digestive tract
CPT/HCPCS: 71046; 74177; 80048; 83735; 84484; 85025; 93005; 96360; 96361; 99283; Q9967